=== PATIENT | female | born 1975 | race Caucasian/White ===

== ENCOUNTER 2017-01-02 12:27 | Emergency (ER) | payer MEDICAID, MEDICARE ==
[2017-01-02 12:38] VITALS: BP 134/80
--- NOTE | 2017-01-02 12:51 | EDM.PDOC ---
ED HPI GENERAL MEDICAL PROBLEM - General Chief Complaint: Respiratory Problem Stated Complaint: Cough, fever Time Seen by Provider: 01/02/17 12:35 Source of Information: Reports: Patient, RN Notes Reviewed History Limitations: Reports: No Limitations - History of Present Illness INITIAL COMMENTS - FREE TEXT/NARRATIVE: 41 year old female presents to the ED with complaints of 2-3 week history of cough, sinus congestion and fever. She was seen in the walk-in clinic at [facility] two days ago and was started on Doxycycline. She reports that her fever has subsided but that her cough is getting worse. She has an albuterol inhaler and is using it frequently. She has a history of asthma and smokes 1 ppd. Her cough is harsh and non-productive. She denies chest pain. No history of heart problems. She is on no other medications besides doxycycline. She says she is unable to sleep because her cough is keeping her awake. 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 (see below) Other Treatments SENIOR QUALITY ASSURANCE ANALYST: ibbuprofen, inhaler, took nyquil last night Tooth/Teeth Pain Score (Numeric/FACES): 8 Generalized Pain Score (Numeric/FACES): 7 - Related Data Allergies Allergy/AdvReac Type Severity Reaction Status Date / Time acetaminophen Allergy Anxiety Verified 01/02/17 12:34 [From Lorcet (hydrocodone)] fexofenadine HCl Allergy Anxiety Verified 01/02/17 12:34 [From Indira-D] hydrocodone bitartrate Allergy Anxiety Verified 01/02/17 12:34 [From Lorcet (hydrocodone)] morphine Allergy Anxiety Verified 01/02/17 12:34 oxycodone Allergy Anxiety Verified 01/02/17 12:34 prochlorperazine edisylate Allergy Anxiety Verified 01/02/17 12:34 [From Compazine] prochlorperazine maleate Allergy Anxiety Verified 01/02/17 12:34 [From Compazine] propoxyphene napsylate Allergy Anxiety Verified 01/02/17 12:34 [From Darvocet-N] pseudoephedrine HCl Allergy Anxiety Verified 01/02/17 12:34 [From Indira-D] Sulfa (Sulfonamide Allergy Rash Verified 01/02/17 12:34 Antibiotics) Home Meds: Home Meds Albuterol Sulfate [Proair Hfa] 8.5 gm IH Q4H PRN 01/22/15 [History] Amitriptyline [Elavil] 20 mg PO BEDTIME 01/22/15 [History] Gabapentin [Neurontin] 800 mg PO TID 01/22/15 [History] Ibuprofen 800 mg PO TID 01/22/15 [History] busPIRone [Buspar] 10 mg PO TID 01/22/15 [History] rOPINIRole [Requip] 0.5 mg PO BEDTIME 01/22/15 [History] tiZANidine [Zanaflex] 4 mg PO TID 01/22/15 [History] tiZANidine [Zanaflex] 8 mg PO BEDTIME 01/22/15 [History] Acetaminophen with Codeine [Acetaminop-Codeine 120-12 mg/5] 10 ml PO Q6H PRN # 120 ml 01/02/17 [Rx] Albuterol [Proventil HFA] 2 puff INH QID PRN #1 inhaler 01/02/17 [Rx] predniSONE [Prednisone] 20 mg PO DAILY #5 tablet 01/02/17 [Rx] Past Medical History Other Musculoskeletal History: DEGENERATIVE BONE DISORDER - Past Surgical History GI Surgical History: Reports: Appendectomy, Cholecystectomy Female Surgical History: Reports: LEEP, Tubal Ligation Social & Family History - Tobacco Use Smoking Status *Q: Current Every Day Smoker Years of Tobacco use: 30 Packs/Tins Daily: 1 Used Tobacco, but Quit: No - Recreational Drug Use Recreational Drug Use: No ED ROS GENERAL - Review of Systems Review Of Systems: See Below Constitutional: Reports: Fever, Chills, Diaphoresis HEENT: Reports: Sinus Problem. Denies: Throat Pain Respiratory: Reports: Cough. Denies: Shortness of Breath, Wheezing, Sputum Cardiovascular: Reports: No Symptoms. Denies: Chest Pain GI/Abdominal: Reports: No Symptoms. Denies: Abdominal Pain, Diarrhea, Nausea, Vomiting ED EXAM, GENERAL - Physical Exam Exam: See Below Exam Limited By: No Limitations General Appearance: Alert, WD/WN, No Apparent Distress Throat/Mouth: Normal Inspection, Normal Oropharynx, No Airway Compromise Neck: Normal Inspection, Supple, Non-Tender, Full Range of Motion Respiratory/Chest: No Respiratory Distress, Chest Non-Tender, Crackles (right lower lobe ). No: Wheezing Cardiovascular: Regular Rate, Rhythm, No Murmur Neurological: Alert, Oriented, Normal Cognition Skin Exam: Warm, Dry, Intact Course - Vital Signs Last Recorded V/S: Last Vital Signs Temp 98.6 F 01/02/17 12:34 Pulse 85 01/02/17 12:34 Resp 20 01/02/17 12:34 BP 134/80 01/02/17 12:34 Pulse Ox 98 01/02/17 12:34 - Orders/Labs/Meds Orders: Active Orders 24 hr Category Date Time Status CXR [Chest 2V] [CR] Stat Exams 01/02/17 12:50 Ordered - Re-Assessments/Exams Free Text/Narrative Re-Assessment/Exam: 2 view chest x-ray is normal. Heart size is normal. There are no pulmonary infiltrates or effusions appreciated. No bony abnormality. Patient may have atypical pneumonia not appreciated on x-ray, this would be treated with doxycyline. Will continue her current antibiotic. Will start her on prednisone, tylenol with codeine, and refill her albuterol inhaler. She was instructed to f/u with in 48 hours if not improved. Departure - Departure Time of Disposition: 13:13 Disposition: Home, Self-Care 01 Condition: Good Clinical Impression: Cough, History of asthma, Smoker - Discharge Information Prescriptions: Acetaminophen with Codeine [Acetaminop-Codeine 120-12 mg/5] 10 ml PO Q6H PRN # 120 ml PRN Reason: Cough Albuterol [Proventil HFA] 2 puff INH QID PRN #1 inhaler PRN Reason: Cough predniSONE [Prednisone] 20 mg PO DAILY #5 tablet Instructions: Cough, Adult, [id number] Referrals: PCP,None [Primary Care Provider] - Forms: ED Department Discharge, ED Return to Work/School Form Additional Instructions: Continue the doxycycline as prescribed Albuterol inhaler every 4 hours as needed Prednisone 20mg daily for 5 days, start today Tylenol with Codeine 10ml at bedtime. May use every 6 hours as needed throughout the day - My Orders Last 24 Hours: My Active Orders 01/02/17 12:50 CXR [Chest 2V] [CR] Stat - Assessment/Plan Last 24 Hours: My Active Orders 01/02/17 12:50 CXR [Chest 2V] [CR] Stat
--- NOTE | 2017-01-02 14:48 | CR ---
Chest: Two views of the chest were obtained. Comparison: No previous chest x-ray. Equivocal nodule overlying the right anterior rib near the costochondral junction. This may represent costochondral calcification but further evaluation will be recommended to exclude nodule. Lungs otherwise are clear. Bony structures are unremarkable. Incidental surgical clips are noted from prior cholecystectomy. Impression: 1. Equivocal right upper lobe nodule. Noncontrast chest CT recommended to hopefully exclude this possibility. 2. Two-view chest x-ray is otherwise unremarkable. Diagnostic code #9
== END 2017-01-02 13:35 | disposition home or self-care (01) ==
LOC: JD.ED 12:27
DX: R05 Cough (principal); F17.210 Nicotine dependence, cigarettes, uncomplicated; J45.909 Unspecified asthma, uncomplicated; Z88.5 Allergy status to narcotic agent; Z88.2 Allergy status to sulfonamides; Z79.899 Other long term (current) drug therapy; Z90.49 Acquired absence of other specified parts of digestive tract
CPT/HCPCS: 71020; 71020-26; 99283

== ENCOUNTER 2017-03-25 17:25 | Emergency (ER) | payer SELFPAY ==
[2017-03-25 17:56] VITALS: BP 123/79
--- NOTE | 2017-03-25 18:57 | EDM.PDOC ---
ED HPI GENERAL MEDICAL PROBLEM - General Chief Complaint: Back Pain or Injury Stated Complaint: PAIN IN SHOULDERS, NECK AND HEAD Time Seen by Provider: 03/25/17 18:57 Source of Information: Reports: Patient History Limitations: Reports: No Limitations - History of Present Illness INITIAL COMMENTS - FREE TEXT/NARRATIVE: Patient is a 41-year-old female with a history of fibromyalgia and degenerative disc disease who presents to the ED complaining of upper back and lateral neck discomfort. Patient states she has chronic neck and upper back discomfort. As of recent ibuprofen and topical pain creams have not relieved this discomfort. She's tried gentle massage with heat and ice with no relief. There has been no known precipitating factors contributing to this discomfort. States she has had episodes as such that are commonly relieved with Toradol and Phenergan while seen in the ED. In addition she has a headache considered to be generalized 2nd to neck discomfort. NO temporal discomfort. AGOSTO was gradual onset. Denies any fever, vision changes, nausea/vomiting, chest pain, shortness of breath, N/T, or any additional complaints. 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, NSAIDS Upper Back Pain Score (Numeric/FACES): 8 - Related Data Allergies Allergy/AdvReac Type Severity Reaction Status Date / Time acetaminophen Allergy Anxiety Verified 01/02/17 12:34 [From Lorcet (hydrocodone)] amoxicillin Allergy Hives Verified 03/25/17 17:57 fexofenadine HCl Allergy Anxiety Verified 01/02/17 12:34 [From Indira-D] hydrocodone bitartrate Allergy Anxiety Verified 01/02/17 12:34 [From Lorcet (hydrocodone)] morphine Allergy Anxiety Verified 01/02/17 12:34 oxycodone Allergy Anxiety Verified 01/02/17 12:34 prochlorperazine edisylate Allergy Anxiety Verified 01/02/17 12:34 [From Compazine] prochlorperazine maleate Allergy Anxiety Verified 01/02/17 12:34 [From Compazine] propoxyphene napsylate Allergy Anxiety Verified 01/02/17 12:34 [From Darvocet-N] pseudoephedrine HCl Allergy Anxiety Verified 01/02/17 12:34 [From Indira-D] Sulfa (Sulfonamide Allergy Rash Verified 01/02/17 12:34 Antibiotics) Home Meds: Home Meds Albuterol Sulfate [Proair Hfa] 8.5 gm IH Q4H PRN 01/22/15 [History] Albuterol [Proventil HFA] 2 puff INH QID PRN #1 inhaler 01/02/17 [Rx] Past Medical History Respiratory History: Reports: Asthma Other Respiratory History: "athletic asthma" Gastrointestinal History: Reports: Irritable Bowel Syndrome Genitourinary History: Reports: None Musculoskeletal History: Reports: Arthritis, Fibromyalgia, Other (See Below) Other Musculoskeletal History: DEGENERATIVE BONE DISORDER bursitis Neurological History: Reports: Concussion Psychiatric History: Reports: ADD, Addiction, Anxiety, Depression, Learning Disability, PTSD Oncologic (Cancer) History: Reports: Cervix - Past Surgical History GI Surgical History: Reports: Appendectomy, Cholecystectomy Female Surgical History: Reports: D&C, LEEP, Tubal Ligation Musculoskeletal Surgical History: Reports: Arthroscopic Knee, Other (See Below) Social & Family History - Family History Family Medical History: Noncontributory - Tobacco Use Smoking Status *Q: Current Every Day Smoker Years of Tobacco use: 29 Packs/Tins Daily: 1.5 Used Tobacco, but Quit: No - Caffeine Use Caffeine Use: Reports: Coffee, Energy Drinks, Soda, Tea - Recreational Drug Use Recreational Drug Use: No ED ROS GENERAL - Review of Systems Review Of Systems: ROS reveals no pertinent complaints other than HPI. ED EXAM, UPPER BACK/NECK PAIN - Physical Exam Exam: See Below Exam Limited By: No Limitations General Appearance: Alert, WD/WN, Mild Distress Ears Exam: Hearing Grossly Normal Nose Exam: Normal Inspection Throat/Mouth Exam: Normal Inspection, Normal Oropharynx, Normal Voice, No Airway Compromise Head Exam: Atraumatic, Normocephalic Neck Exam: Full Range of Motion, Normal Alignment, Normal Inspection, Painful Range of Motion (mild), Paraspinous Muscle Tender, Tender Lateral. No: Limited Range of Motion, Spinous Processes Tender, Tender Midline Nexus Criteria: No: Evidence of Intoxication, Altered Level of Consciousness, Focal Neurological Deficit, Painful Distraction Injuries Cardiovascular/Respiratory: Regular Rate, Rhythm, No M/R/G, Normal Peripheral Pulses Back Exam: Normal Inspection, Full Range of Motion, Paraspinal Tenderness. 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 nml As Tested, No Motor/Sensory Deficits, Alert, Normal Mood/Affect, Oriented x 3 Psychiatric: Normal Affect, Normal Mood Skin Exam: Normal Color, Warm/Dry Course - Vital Signs Last Recorded V/S: Last Vital Signs Temp 97 F 03/25/17 17:52 Pulse 78 03/25/17 17:52 Resp 18 03/25/17 17:52 BP 123/79 03/25/17 17:52 Pulse Ox 99 03/25/17 17:52 - Orders/Labs/Meds Meds: Medications Discontinued Medications Generic Name Dose Route Start Last Admin Trade Name Cheryl PRN Reason Stop Dose Admin Ketorolac Tromethamine 60 mg 03/25/17 19:38 03/25/17 19:44 Toradol IM 03/25/17 19:39 60 mg ONETIME ONE Administration Promethazine HCl 25 mg 03/25/17 19:38 03/25/17 19:44 Phenergan IM 03/25/17 19:39 25 mg ONETIME ONE Administration - Re-Assessments/Exams Free Text/Narrative Re-Assessment/Exam: Patient has hx of fibromyalgia and degenerative joint disease. Current complaint similar to previous episodes. She normally gets Toradol and Phenergan while in the ED for similar complaints. Will order Toradol 60 mg IM and Phenergan 25 mg IM. We'll discharge patient home with instructions as documented. Departure - Departure Time of Disposition: 19:42 Disposition: Home, Self-Care 01 Condition: Good Clinical Impression: Chronic neck and back pain - Discharge Information Instructions: Back Pain, Adult, [id number], Pain Medicine Instructions, Easy- to-Read, Chronic Back Pain Referrals: PCP,None [Ordering Only Provider] - Forms: ED Department Discharge, ED Return to Work/School Form Additional Instructions: You were given Phenergan and Toradol while in the ED. Suggest going home apply warm compresses to affected area with gentle massage. Can utilize topical Biofreeze for discomfort. Follow-up with your PCP in next week for reevaluation and continued pain therapy. Refrain from any activities that cause worsening pain.
[2017-03-25] MEDS ORDERED: Promethazine 25 MG/ML SDV IM ONE (19:38)
[2017-03-25] MEDS ORDERED: Ketorolac 60 MG/2 ML SDV IM ONE (19:38)
== END 2017-03-25 19:56 | disposition home or self-care (01) ==
LOC: JD.ED 17:25
DX: G89.29 Other chronic pain (principal); M54.6 Pain in thoracic spine; M54.2 Cervicalgia; J45.909 Unspecified asthma, uncomplicated; F17.210 Nicotine dependence, cigarettes, uncomplicated; Z88.2 Allergy status to sulfonamides; Z88.8 Allergy status to other drugs, medicaments and biological substances; Z88.5 Allergy status to narcotic agent; Z88.6 Allergy status to analgesic agent; Z88.1 Allergy status to other antibiotic agents
CPT/HCPCS: 96372; 99283; J1885; J2550; 99282

== ENCOUNTER 2017-06-29 21:32 | Emergency (ER) | payer MEDICAID ==
[2017-06-29 22:13] VITALS: BP 107/69
[2017-06-29] MEDS ORDERED: Promethazine 25 MG/ML SDV IM ONE (22:25)
[2017-06-29] MEDS ORDERED: HYDROmorphone 1 MG/ML Syringe IM ONE (22:25)
--- NOTE | 2017-06-29 22:31 | EDM.PDOC ---
ED HPI GENERAL MEDICAL PROBLEM - General Chief Complaint: ENT Problem Stated Complaint: TOOTH PAIN Time Seen by Provider: 06/29/17 22:15 Source of Information: Reports: Patient History Limitations: Reports: No Limitations - History of Present Illness INITIAL COMMENTS - FREE TEXT/NARRATIVE: 41-year-old female presents to the ED with diffuse dental pain. 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 She was seen in the clinic last week and started on clindamycin 300 mg 4 times daily of which she is still on. This was started because of infection in the right upper canine tooth. Currently now expressing pain in the left canine tooth distribution rating up and towards her left maxillary sinus and along the left side of her nose. She's been using Motrin in addition to diclofenac for pain relief. Pain is now constant throbbing and radiating up into her left face. 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: Other (see below) Tooth/Teeth Pain Score (Numeric/FACES): 9 - Related Data Allergies Allergy/AdvReac Type Severity Reaction Status Date / Time acetaminophen Allergy Anxiety Verified 01/02/17 12:34 [From Lorcet (hydrocodone)] amoxicillin Allergy Hives Verified 03/25/17 17:57 fexofenadine HCl Allergy Anxiety Verified 01/02/17 12:34 [From Indira-D] hydrocodone bitartrate Allergy Anxiety Verified 01/02/17 12:34 [From Lorcet (hydrocodone)] morphine Allergy Anxiety Verified 01/02/17 12:34 oxycodone Allergy Anxiety Verified 01/02/17 12:34 prochlorperazine edisylate Allergy Anxiety Verified 01/02/17 12:34 [From Compazine] prochlorperazine maleate Allergy Anxiety Verified 01/02/17 12:34 [From Compazine] propoxyphene napsylate Allergy Anxiety Verified 01/02/17 12:34 [From Darvocet-N] pseudoephedrine HCl Allergy Anxiety Verified 01/02/17 12:34 [From Indira-D] Sulfa (Sulfonamide Allergy Rash Verified 01/02/17 12:34 Antibiotics) Home Meds: Home Meds Albuterol Sulfate [Proair Hfa] 8.5 gm IH Q4H PRN 01/22/15 [History] Albuterol [Proventil HFA] 2 puff INH QID PRN #1 inhaler 01/02/17 [Rx] Ciprofloxacin HCl [Cipro] 500 mg PO BID #14 tablet 06/29/17 [Rx] Clindamycin HCl 300 mg PO QID 06/29/17 [History] Diclofenac Sodium [Voltaren] 50 mg PO BID 06/29/17 [History] Gabapentin [Neurontin] 1,200 mg PO TID 06/29/17 [History] HYDROmorphone [Dilaudid] 2 mg PO Q6H PRN #10 tab 06/29/17 [Rx] hydrOXYzine HCl [hydrOXYzine] 25 mg PO BID 06/29/17 [History] hydrOXYzine HCl [hydrOXYzine] 150 mg PO BEDTIME 06/29/17 [History] lamoTRIgine [LaMICtal] 100 mg PO BEDTIME 06/29/17 [History] tiZANidine [Zanaflex] 4 mg PO ASDIRECTED 06/29/17 [History] Past Medical History Respiratory History: Reports: Asthma Other Respiratory History: "athletic asthma" Gastrointestinal History: Reports: Irritable Bowel Syndrome Genitourinary History: Reports: None Musculoskeletal History: Reports: Arthritis, Fibromyalgia, Other (See Below) Other Musculoskeletal History: DEGENERATIVE BONE DISORDER bursitis Neurological History: Reports: Concussion Psychiatric History: Reports: ADD, Addiction, Anxiety, Depression, Learning Disability, PTSD Oncologic (Cancer) History: Reports: Cervix - Past Surgical History GI Surgical History: Reports: Appendectomy, Cholecystectomy Female Surgical History: Reports: D&C, LEEP, Tubal Ligation Musculoskeletal Surgical History: Reports: Arthroscopic Knee, Other (See Below) Social & Family History - Family History Family Medical History: Noncontributory - Tobacco Use Smoking Status *Q: Current Every Day Smoker Years of Tobacco use: 29 Packs/Tins Daily: 1.5 Used Tobacco, but Quit: No - Caffeine Use Caffeine Use: Reports: Coffee, Energy Drinks, Soda, Tea - Recreational Drug Use Recreational Drug Use: No - Living Situation & Occupation Occupation: Unemployed ED ROS ENT - Review of Systems Review Of Systems: See Below Constitutional: Reports: Decreased Appetite. Denies: Fever, Chills, Malaise, Weakness, Fatigue, Weight Loss HEENT: Reports: Dental Pain (See history of present illness) Respiratory: Reports: No Symptoms, Cough Cardiovascular: Reports: No Symptoms (Smoker's cough.). Denies: Chest Pain, Blood Pressure Problem Endocrine: Reports: Fatigue GI/Abdominal: Reports: Nausea : Reports: No Symptoms Musculoskeletal: Reports: Neck Pain, Shoulder Pain, Back Pain Skin: Reports: No Symptoms Neurological: Reports: No Symptoms, Change in Speech Psychiatric: Reports: No Symptoms Hematologic/Lymphatic: Reports: No Symptoms ED EXAM, ENT - Physical Exam Exam: See Below Exam Limited By: No Limitations General Appearance: Alert, WD/WN, Mild Distress Eye Exam: Bilateral Eye: Normal Inspection Ears: Normal TMs Mouth/Throat: Other (Dental caries. The left upper canine tooth is broken off with the gingiva margin which is swollen without any obvious purulent discharge. Similarly the right upper canine tooth is broken off at the gingiva margin. Numerous molar teeth particularly upper have fractured and are severely decayed. Similarly lower molars as well. She is going to need multiple extractions of her upper teeth and one of her lower molars to provide relief of dental pain chronically.) Head: Atraumatic, Normocephalic Neck: Normal Inspection, Supple, Non-Tender, Full Range of Motion, Lymphadenopathy (L) (Mild adenopathy submandibular.). No: Lymphadenopathy (R) Respiratory/Chest: No Respiratory Distress, Lungs Clear, Normal Breath Sounds, Respiratory Distress (Mild tachypnea but she is anxious.) Course - Vital Signs Last Recorded V/S: Last Vital Signs Temp 36.8 C 06/29/17 22:12 Pulse 70 06/29/17 22:12 Resp 20 06/29/17 22:12 BP 107/69 06/29/17 22:12 Pulse Ox 99 06/29/17 22:12 - Orders/Labs/Meds Meds: Medications Discontinued Medications Generic Name Dose Route Start Last Admin Trade Name Freq PRN Reason Stop Dose Admin Hydromorphone HCl 1 mg 06/29/17 22:25 Dilaudid IM 06/29/17 22:26 ONETIME ONE Hydromorphone HCl 1 mg 06/29/17 22:37 06/29/17 22:49 Dilaudid IM 06/29/17 22:38 1 mg ONETIME ONE Administration Promethazine HCl 25 mg 06/29/17 22:25 06/29/17 22:48 Phenergan IM 06/29/17 22:26 25 mg ONETIME ONE Administration - Radiology Interpretation Free Text/Narrative:: 41-year-old female presents to the ED primarily for pain management of severe dental pain. She is already on clindamycin 300 mg 4 times daily but in spite of being on medication for 4 days she's developed increased pain and swelling of her left upper canine tooth. There is a remote possibility of antibiotic resistance versus noncompliance. At any rate the upper left canine tooth is broken off even with the gingiva margin with surrounding gingival swelling and erythema. Pain is radiating up into her maxillary sinus area. I've Dilaudid 2 mg tablets one every 4-6 hours as needed for dental pain 12 tablets. She is to see the dentist next week and have the teeth extracted. Unfortunately it may take an oral surgeon to remove most of these teeth at one sitting. We do not have Dilaudid tablets in the ED. Therefore she was given Dilaudid 1 mg IM with Phenergan 25 mg IM for acute pain relief overnight. Departure - Departure Time of Disposition: 22:45 Disposition: Home, Self-Care 01 Condition: Fair Clinical Impression: Infected dental caries, Pain, dental - Discharge Information Prescriptions: Ciprofloxacin HCl [Cipro] 500 mg PO BID #14 tablet HYDROmorphone [Dilaudid] 2 mg PO Q6H PRN #10 tab PRN Reason: Dental pain Referrals: PCP,Unknown [Ordering Only Provider] - Forms: ED Department Discharge Additional Instructions: Evaluation emergency room tonight in regards to dental pain left upper canine which is broken off at the gingiva margin. Already on clindamycin 300 mg 4 times daily for dental infection involving the opposite upper canine tooth. Plan is to continue with the clindamycin with the addition of a new antibiotic Cipro 500 mg twice daily for the next week as well. Dental pain is to be controlled with diclofenac as you're already taking and use of Dilaudid tabs 2 mg every 6 hours as necessary for further pain relief. Follow-up with dentist when able as the tooth will have to be extracted otherwise infection and pain are likely to recur soon as the antibiotics are finished.
[2017-06-29] MEDS ORDERED: HYDROmorphone 0.5 MG/0.5 ML SYRINGE IM ONE (22:37)
== END 2017-06-29 22:54 | disposition home or self-care (01) ==
LOC: JD.ED 21:32
DX: K02.9 Dental caries, unspecified (principal); K04.7 Periapical abscess without sinus; K03.81 Cracked tooth; F17.210 Nicotine dependence, cigarettes, uncomplicated; J45.909 Unspecified asthma, uncomplicated; Z88.1 Allergy status to other antibiotic agents; Z88.5 Allergy status to narcotic agent; Z88.6 Allergy status to analgesic agent; Z88.2 Allergy status to sulfonamides; Z88.8 Allergy status to other drugs, medicaments and biological substances
CPT/HCPCS: 96372; 99283; J1170; J2550

== ENCOUNTER 2017-11-05 17:51 | Emergency (ER) | payer OTHER, MEDICAID ==
[2017-11-05 18:02] VITALS: BP 134/81
[2017-11-05] MEDS ORDERED: Ketorolac 60 MG/2 ML SDV IM ONE (18:24)
[2017-11-05] MEDS ORDERED: Promethazine 25 MG/ML SDV IM ONE (18:25)
--- NOTE | 2017-11-05 18:32 | EDM.PDOC ---
ED HPI GENERAL MEDICAL PROBLEM - General Chief Complaint: General Stated Complaint: IN ALOT OF PAIN Time Seen by Provider: 11/05/17 18:08 Source of Information: Reports: Patient History Limitations: Reports: No Limitations - History of Present Illness INITIAL COMMENTS - FREE TEXT/NARRATIVE: Patient is a 42-year-old female presents ED complaining of bilateral upper back , neck, head discomfort. She states she has a history of fibromyalgia and she's recently had a flare up. She has taken her gabapentin, denies obtained, and also ibuprofen with no significant improvements. States she's been under more stress recently due to legal issues for her boyfriend and son. In the past she receives Toradol and Phenergan IM. She does not request any narcotics. She denies any fever, stiff neck, recent trauma/activity precipitating pain, rash, or other concerning symptoms. The symptoms currently experiencing are similar to previous flareups. Generalized Pain Score (Numeric/FACES): 9 - Related Data Allergies Allergy/AdvReac Type Severity Reaction Status Date / Time amoxicillin Allergy Hives Verified 11/05/17 17:57 Sulfa (Sulfonamide Allergy Rash Verified 11/05/17 17:57 Antibiotics) acetaminophen AdvReac Anxiety Verified 11/05/17 17:57 [From Lorcet (hydrocodone)] fexofenadine HCl AdvReac Anxiety Verified 11/05/17 17:57 [From Indira-D] hydrocodone bitartrate AdvReac Anxiety Verified 11/05/17 17:57 [From Lorcet (hydrocodone)] morphine AdvReac Anxiety Verified 11/05/17 17:57 oxycodone AdvReac Anxiety Verified 11/05/17 17:57 prochlorperazine edisylate AdvReac Anxiety Verified 11/05/17 17:57 [From Compazine] prochlorperazine maleate AdvReac Anxiety Verified 11/05/17 17:57 [From Compazine] propoxyphene napsylate AdvReac Anxiety Verified 11/05/17 17:57 [From Darvocet-N] pseudoephedrine HCl AdvReac Anxiety Verified 11/05/17 17:57 [From Indira-D] Home Meds: Home Meds Albuterol Sulfate [Proair Hfa] 8.5 gm IH Q4H PRN 01/22/15 [History] Albuterol [Proventil HFA] 2 puff INH QID PRN #1 inhaler 01/02/17 [Rx] Gabapentin [Neurontin] 1,200 mg PO TID 06/29/17 [History] hydrOXYzine HCl [hydrOXYzine] 25 mg PO BID 06/29/17 [History] hydrOXYzine HCl [hydrOXYzine] 150 mg PO BEDTIME 06/29/17 [History] tiZANidine [Zanaflex] 4 mg PO ASDIRECTED 06/29/17 [History] Prazosin [Minpress] 4 mg PO BEDTIME 11/05/17 [History] Past Medical History HEENT History: Reports: Other (See Below) Other HEENT History: dental carries Respiratory History: Reports: Asthma Other Respiratory History: "athletic asthma" Gastrointestinal History: Reports: Irritable Bowel Syndrome Genitourinary History: Reports: None Musculoskeletal History: Reports: Arthritis, Fibromyalgia, Other (See Below) Other Musculoskeletal History: DEGENERATIVE BONE DISORDER bursitis Neurological History: Reports: Concussion Psychiatric History: Reports: ADD, Addiction, Anxiety, Depression, Learning Disability, PTSD Oncologic (Cancer) History: Reports: Cervix - Past Surgical History GI Surgical History: Reports: Appendectomy, Cholecystectomy Female Surgical History: Reports: D&C, LEEP, Tubal Ligation Musculoskeletal Surgical History: Reports: Arthroscopic Knee, Other (See Below) Social & Family History - Family History Family Medical History: Noncontributory - Tobacco Use Smoking Status *Q: Current Every Day Smoker Years of Tobacco use: 30 Packs/Tins Daily: 1 - Caffeine Use Caffeine Use: Reports: Coffee, Energy Drinks, Soda - Recreational Drug Use Recreational Drug Use: Yes Drug Use in Last 12 Months: No Recreational Drug Type: Reports: Marijuana/Hashish, Methamphetamine - Living Situation & Occupation Occupation: Unemployed ED ROS GENERAL - Review of Systems Review Of Systems: ROS reveals no pertinent complaints other than HPI. ED EXAM, GENERAL - Physical Exam Exam: See Below Exam Limited By: No Limitations General Appearance: Alert, WD/WN, No Apparent Distress Eye Exam: Bilateral Eye: Normal Inspection, PERRL Ears: Hearing Grossly Normal Nose: Normal Inspection Throat/Mouth: Normal Inspection, Normal Voice, No Airway Compromise Neck: Normal Inspection, Supple, Full Range of Motion, Tender Lateral Respiratory/Chest: No Respiratory Distress, Lungs Clear, Normal Breath Sounds, No Accessory Muscle Use, Chest Non-Tender Cardiovascular: Normal Peripheral Pulses, Regular Rate, Rhythm, No Murmur Peripheral Pulses: 4+: Radial (L) GI/Abdominal: Normal Bowel Sounds, Soft, Non-Tender, No Organomegaly, No Distention Back Exam: Normal Inspection, Other (Tenderness noted to the upper back along the trapezius muscles bilateral.). No: CVA Tenderness (L), CVA Tenderness (R), Decreased Range of Motion, Muscle Spasm, Paraspinal Tenderness, Vertebral Tenderness Neurological: Alert, Oriented, CN II-XII Intact, Normal Cognition, No Motor/ Sensory Deficits Psychiatric: Normal Affect, Normal Mood Skin Exam: Warm, Dry, Intact, Normal Color, No Rash Course - Vital Signs Last Recorded V/S: Last Vital Signs Temp 98.4 F 11/05/17 17:59 Pulse 73 11/05/17 17:59 Resp 16 11/05/17 17:59 BP 134/81 11/05/17 17:59 Pulse Ox 97 11/05/17 17:59 - Orders/Labs/Meds Meds: Medications Discontinued Medications Generic Name Dose Route Start Last Admin Trade Name Cheryl PRN Reason Stop Dose Admin Ketorolac Tromethamine 60 mg 11/05/17 18:24 Toradol IM 11/05/17 18:25 ONETIME ONE Promethazine HCl 25 mg 11/05/17 18:25 Phenergan IM 11/05/17 18:26 ONETIME ONE - Re-Assessments/Exams Free Text/Narrative Re-Assessment/Exam: On examination she has some mild tenderness noted to the upper back, lateral neck, on palpation. No decreased range of motion noted. No swelling, ecchymosis , bony abdomen eyes, or rash present. Neurologically she is intact. Findings are consistent with previous episodes with fiber myalgia flare up. She is requesting Toradol and Phenergan IM. I ordered Toradol 60 mg IM and Phenergan 25 mg IM. Patient last took ibuprofen approximately 5 hours ago. Discharge instructions as documented. Departure - Departure Time of Disposition: 18:29 Disposition: Home, Self-Care 01 Condition: Good Clinical Impression: Chronic pain syndrome, Fibromyalgia muscle pain - Discharge Information Instructions: Myofascial Pain Syndrome and Fibromyalgia Referrals: Damian Calderon [Primary Care Provider] - Additional Instructions: Suggests finding a dark room to fall sleep this evening with no distractions. No driving since receiving a sedative medication. Continue using all the homeopathic Methods for treating fibromyalgia pain and also continue taking all your home medications as prescribed. Follow-up with your primary care provider tomorrow or the next day for reevaluation. Return to the ED if you develop any new or worsening symptoms.
== END 2017-11-05 18:40 | disposition home or self-care (01) ==
LOC: JD.ED 17:51
DX: G89.4 Chronic pain syndrome (principal); M79.7 Fibromyalgia; F17.210 Nicotine dependence, cigarettes, uncomplicated; J45.909 Unspecified asthma, uncomplicated; F41.9 Anxiety disorder, unspecified; F32.9 Major depressive disorder, single episode, unspecified; Z79.899 Other long term (current) drug therapy; Z88.8 Allergy status to other drugs, medicaments and biological substances; Z88.2 Allergy status to sulfonamides; Z88.5 Allergy status to narcotic agent; Z88.1 Allergy status to other antibiotic agents
CPT/HCPCS: 96372; 99283; J1885; J2550

== ENCOUNTER 2017-12-13 13:08 | Emergency (ER) | payer MEDICAID, MEDICARE ==
[2017-12-13 13:18] VITALS: BP 122/73
[2017-12-13] MEDS ORDERED: Ketorolac 30 MG/ML SDV IM ONE (13:52)
--- NOTE | 2017-12-13 14:04 | EDM.PDOC ---
ED HPI GENERAL MEDICAL PROBLEM - General Chief Complaint: Neck Problem Stated Complaint: NECK AND SHOULDER PAIN Time Seen by Provider: 12/13/17 13:33 Source of Information: Reports: Patient History Limitations: Reports: No Limitations - History of Present Illness INITIAL COMMENTS - FREE TEXT/NARRATIVE: Patient is a 42-year-old female who presents ED complaining of left-sided lateral neck discomfort that radiates into the upper left arm. Patient underwent fusion of C5 and C6 by Dr. Zuleta 8 days ago. There were no complications. States the healing process has been uneventful up until today. Patient states she was cleaning her kitchen when she experience sudden onset of pain to the left lateral neck that radiated into her arm. There is no motor deficits. No sensory deficits. No weakness noted. She was instructed not to perform any also old activities among other things for 6 weeks by the neurosurgeon. She did take Dilaudid 2 mg at 9:30 this morning along with Valium 10 mg by mouth. She had some relief with these medications. She is not wanting a narcotic meds. She is concerned she may have messed up the surgery. Incision site to the anterior aspect the neck is well-healed with no noticeable swelling. No swelling noted posteriorly that is abnormal at this time. Patient denies any other complaints. Neck Pain Score (Numeric/FACES): 8 - Related Data Allergies Allergy/AdvReac Type Severity Reaction Status Date / Time amoxicillin Allergy Hives Verified 11/05/17 17:57 Sulfa (Sulfonamide Allergy Rash Verified 11/05/17 17:57 Antibiotics) acetaminophen AdvReac Anxiety Verified 11/05/17 17:57 [From Lorcet (hydrocodone)] fexofenadine HCl AdvReac Anxiety Verified 11/05/17 17:57 [From Indira-D] hydrocodone bitartrate AdvReac Anxiety Verified 11/05/17 17:57 [From Lorcet (hydrocodone)] morphine AdvReac Anxiety Verified 11/05/17 17:57 oxycodone AdvReac Anxiety Verified 11/05/17 17:57 prochlorperazine edisylate AdvReac Anxiety Verified 11/05/17 17:57 [From Compazine] prochlorperazine maleate AdvReac Anxiety Verified 11/05/17 17:57 [From Compazine] propoxyphene napsylate AdvReac Anxiety Verified 11/05/17 17:57 [From Darvocet-N] pseudoephedrine HCl AdvReac Anxiety Verified 11/05/17 17:57 [From Indira-D] Home Meds: Home Meds Albuterol Sulfate [Proair Hfa] 8.5 gm IH Q4H PRN 01/22/15 [History] Albuterol [Proventil HFA] 2 puff INH QID PRN #1 inhaler 01/02/17 [Rx] Gabapentin [Neurontin] 1,200 mg PO TID 06/29/17 [History] hydrOXYzine HCl [hydrOXYzine] 25 mg PO BID 06/29/17 [History] hydrOXYzine HCl [hydrOXYzine] 150 mg PO BEDTIME 06/29/17 [History] tiZANidine [Zanaflex] 4 mg PO ASDIRECTED 06/29/17 [History] Prazosin [Minpress] 4 mg PO BEDTIME 11/05/17 [History] Diazepam [Valium] 10 mg PO ASDIRECTED PRN 12/13/17 [History] HYDROmorphone [Dilaudid] 1 - 2 tab PO Q6H PRN 12/13/17 [History] Vortioxetine Hydrobromide [Trintellix] 10 mg PO DAILY 12/13/17 [History] Past Medical History HEENT History: Reports: Other (See Below) Other HEENT History: dental carries Respiratory History: Reports: Asthma Other Respiratory History: "athletic asthma" Gastrointestinal History: Reports: Irritable Bowel Syndrome Genitourinary History: Reports: None Musculoskeletal History: Reports: Arthritis, Fibromyalgia, Other (See Below) Other Musculoskeletal History: DEGENERATIVE BONE DISORDER bursitis Neurological History: Reports: Concussion Psychiatric History: Reports: ADD, Addiction, Anxiety, Depression, Learning Disability, PTSD Oncologic (Cancer) History: Reports: Cervix - Past Surgical History GI Surgical History: Reports: Appendectomy, Cholecystectomy Female Surgical History: Reports: D&C, LEEP, Tubal Ligation Musculoskeletal Surgical History: Reports: Arthroscopic Knee, Other (See Below) Other Musculoskeletal Surgeries/Procedures:: neck surgery 2018-fusion [id number] Social & Family History - Family History Family Medical History: Noncontributory - Tobacco Use Smoking Status *Q: Current Every Day Smoker Years of Tobacco use: 32 Packs/Tins Daily: 1 - Caffeine Use Caffeine Use: Reports: Coffee, Energy Drinks, Soda, Tea - Recreational Drug Use Recreational Drug Use: No - Living Situation & Occupation Occupation: Unemployed ED ROS GENERAL - Review of Systems Review Of Systems: See Below Constitutional: Reports: No Symptoms Respiratory: Reports: No Symptoms Cardiovascular: Reports: No Symptoms Musculoskeletal: Reports: Neck Pain, Arm Pain. Denies: Back Pain Skin: Reports: No Symptoms Neurological: Reports: No Symptoms ED EXAM, GENERAL - Physical Exam Exam: See Below Exam Limited By: No Limitations General Appearance: Alert, WD/WN, Mild Distress Eye Exam: Bilateral Eye: Normal Inspection Ears: Hearing Grossly Normal Nose: Normal Inspection Throat/Mouth: Normal Voice, No Airway Compromise Head: Atraumatic, Normocephalic Neck: Tender Lateral (Some mild discomfort noted along the trapezius muscle with palpation.), Other (Small surgical incision to the right anterior of the neck. Surgical incision is well approximated with no concerns for infection. Minimal swelling present. She does have some midline tenderness along the cervical spine persistent from surgery. No new changes noted. Decreased range of motion noted persistent unchanged.) Respiratory/Chest: No Respiratory Distress, Lungs Clear, Normal Breath Sounds, No Accessory Muscle Use Cardiovascular: Normal Peripheral Pulses, Regular Rate, Rhythm, No Murmur Peripheral Pulses: 3+: Radial (L) Back Exam: Normal Inspection, Other (Nontender throughout) Extremities: Normal Inspection, Normal Range of Motion, Non-Tender, No Pedal Edema, Normal Capillary Refill Neurological: Alert, Oriented, CN II-XII Intact, Normal Cognition, No Motor/ Sensory Deficits Psychiatric: Normal Affect, Normal Mood Skin Exam: Warm, Dry, Intact, Normal Color, No Rash Course - Vital Signs Last Recorded V/S: Last Vital Signs Temp 98.5 F 12/13/17 13:17 Pulse 77 12/13/17 13:17 Resp 20 12/13/17 13:17 BP 122/73 12/13/17 13:17 Pulse Ox 96 12/13/17 13:17 - Orders/Labs/Meds Meds: Medications Discontinued Medications Generic Name Dose Route Start Last Admin Trade Name Freq PRN Reason Stop Dose Admin Ketorolac Tromethamine 30 mg 12/13/17 13:52 12/13/17 13:58 Toradol IM 12/13/17 13:53 30 mg ONETIME ONE Administration - Re-Assessments/Exams Free Text/Narrative Re-Assessment/Exam: No narcotics will be provided while in the ED. Patient refuses any narcotics as well. I offered an injection of Toradol low-dose to which the patient has agreed. 30 mg IM ordered. No additional studies testing are required at this point. I believe patient aggravated her neck with the activities performed while cleaning her kitchen. She is not following instructions laid out by neurosurgeon. She will follow up with neurosurgeon this coming week for reevaluation. Departure - Departure Time of Disposition: 14:10 Disposition: Home, Self-Care 01 Condition: Good Clinical Impression: S/P cervical spinal fusion, Neck pain on left side - Discharge Information Referrals: Dinora Griffin MD [Primary Care Provider] - Forms: ED Department Discharge Additional Instructions: Continue to take all home medications as prescribed. Please review the instructions provided by your neurosurgeon. If you should develop any new or worsening symptoms please return back to the ED. Contact your neurosurgeon this coming Friday if symptoms persist to be reevaluated this week.
== END 2017-12-13 14:24 | disposition home or self-care (01) ==
LOC: JD.ED 13:08
DX: M54.2 Cervicalgia (principal); Z98.1 Arthrodesis status; Z88.2 Allergy status to sulfonamides; Z88.8 Allergy status to other drugs, medicaments and biological substances; Z88.0 Allergy status to penicillin; Z88.6 Allergy status to analgesic agent; Z79.899 Other long term (current) drug therapy
CPT/HCPCS: 96372; 99283; J1885

== ENCOUNTER 2018-02-05 09:52 | Emergency (ER) | payer MEDICARE, MEDICAID ==
[2018-02-05 10:31] VITALS: BP 120/74
[2018-02-05] MEDS ORDERED: Ondansetron 4 MG/2 ML SDV IVPUSH ONE (10:37)
[2018-02-05] MEDS ORDERED: Dextrose 5%-Lactated Ringers 1,000 ML IV SCH ×2 (10:45→13:00)
--- NOTE | 2018-02-05 10:46 | EDM.PDOC ---
ED HPI GENERAL MEDICAL PROBLEM - General Chief Complaint: Gastrointestinal Problem Stated Complaint: ABD PAIN AND DIARRHEA Time Seen by Provider: 02/05/18 10:29 Source of Information: Reports: Patient, Family (spouse) History Limitations: Reports: No Limitations - History of Present Illness INITIAL COMMENTS - FREE TEXT/NARRATIVE: Today we have a 42 yo F who presents to the ED for evaluation and treatment of her diarrhea and abdominal pain. She states that she was seen at the [facility] last night for the same symptoms, and they did some labs. However she is not feeling better, but is feeling worse than she was last night , she characterizes being more lightheaded/dizzy and sweaty. She states that she has been having diarrhea for around 3 days, and abdominal pain for around 1 week. She states that the stool is bright yellow in color, watery and slimy in nature. She states that the pain is located in her lower abdomen. She says that it is a crampy pain and is also sharp at times. She rates this as an 8/10 on a 0 -10 pain scale. This pain does not radiate anywhere else, and that nothing makes it better, but doing any type of activity makes it worse. She is having around 8-9 stools per day. She also states that she has been on 3 different antibiotics within the last couple months. We discussed found out that the last medication was cephalexin 500 mg twice a day for 10 days prescribed January 02. 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) (None.) Abdominal Pain Score (Numeric/FACES): 8 - Related Data Allergies Allergy/AdvReac Type Severity Reaction Status Date / Time amoxicillin Allergy Hives Verified 02/05/18 10:31 Sulfa (Sulfonamide Allergy Rash Verified 02/05/18 10:31 Antibiotics) acetaminophen AdvReac Anxiety Verified 02/05/18 10:31 [From Lorcet (hydrocodone)] fexofenadine HCl AdvReac Anxiety Verified 02/05/18 10:31 [From Indira-D] hydrocodone bitartrate AdvReac Anxiety Verified 02/05/18 10:31 [From Lorcet (hydrocodone)] morphine AdvReac Anxiety Verified 02/05/18 10:31 oxycodone AdvReac Anxiety Verified 02/05/18 10:31 prochlorperazine edisylate AdvReac Anxiety Verified 02/05/18 10:31 [From Compazine] prochlorperazine maleate AdvReac Anxiety Verified 02/05/18 10:31 [From Compazine] propoxyphene napsylate AdvReac Anxiety Verified 02/05/18 10:31 [From Darvocet-N] pseudoephedrine HCl AdvReac Anxiety Verified 11/05/17 17:57 [From Indira-D] Home Meds: Home Meds Albuterol [Proventil HFA] 2 puff INH QID PRN #1 inhaler 01/02/17 [Rx] Gabapentin [Neurontin] 1,200 mg PO TID 06/29/17 [History] hydrOXYzine HCl [hydrOXYzine] 50 mg PO BID 06/29/17 [History] hydrOXYzine HCl [hydrOXYzine] 150 mg PO BEDTIME 06/29/17 [History] tiZANidine [Zanaflex] 4 mg PO ASDIRECTED 06/29/17 [History] Prazosin [Minpress] 4 mg PO BEDTIME 11/05/17 [History] Diazepam [Valium] 10 mg PO ASDIRECTED PRN 12/13/17 [History] HYDROmorphone [Dilaudid] 1 - 2 tab PO Q6H PRN 12/13/17 [History] Vortioxetine Hydrobromide [Trintellix] 10 mg PO DAILY 12/13/17 [History] Dicyclomine [Bentyl] 20 mg PO Q6H PRN #5 tablet 02/05/18 [Rx] metroNIDAZOLE [Flagyl] 500 mg PO Q8H #24 tab 02/05/18 [Rx] Past Medical History HEENT History: Reports: Other (See Below) Other HEENT History: dental carries Respiratory History: Reports: Asthma Other Respiratory History: "athletic asthma" Gastrointestinal History: Reports: Irritable Bowel Syndrome Genitourinary History: Reports: None Musculoskeletal History: Reports: Arthritis, Fibromyalgia, Other (See Below) Other Musculoskeletal History: DEGENERATIVE BONE DISORDER bursitis Neurological History: Reports: Concussion Psychiatric History: Reports: ADD, Addiction, Anxiety, Depression, Learning Disability, PTSD Oncologic (Cancer) History: Reports: Cervix - Past Surgical History GI Surgical History: Reports: Appendectomy, Cholecystectomy Female Surgical History: Reports: D&C, LEEP, Tubal Ligation Musculoskeletal Surgical History: Reports: Arthroscopic Knee, Other (See Below) Other Musculoskeletal Surgeries/Procedures:: neck surgery 2018-fusion C5C6 Social & Family History - Family History Family Medical History: Noncontributory - Tobacco Use Smoking Status *Q: Current Every Day Smoker (1ppd) Tobacco Use Within Last Twelve Months: Cigarettes - Caffeine Use Caffeine Use: Reports: Coffee, Energy Drinks, Soda, Tea - Living Situation & Occupation Occupation: Unemployed ED ROS GENERAL - Review of Systems Review Of Systems: See Below Constitutional: Reports: Fever, Chills, Weakness, Fatigue, Decreased Appetite Respiratory: Reports: No Symptoms Cardiovascular: Reports: No Symptoms GI/Abdominal: Reports: Abdominal Pain (lower abdominal pain), Diarrhea, Decreased Appetite, Nausea. Denies: Black Stool, Bloody Stool, Hematochezia, Vomiting : Reports: No Symptoms Musculoskeletal: Reports: Neck Pain (hx/o cervical fusion in december, but not bothersome at this time) Skin: Reports: No Symptoms Neurological: Reports: No Symptoms Psychiatric: Reports: No Symptoms Hematologic/Lymphatic: Reports: No Symptoms ED EXAM, GI/ABD - Physical Exam Exam: See Below Exam Limited By: No Limitations General Appearance: Alert, WD/WN, Mild Distress Eyes: Bilateral: Normal Appearance Throat/Mouth: Normal Inspection, Normal Lips, Normal Oropharynx (the oropharynx appears somewhat dry at this time), Normal Voice Head: Atraumatic, Normocephalic Neck: Normal Inspection, Supple, Non-Tender, Full Range of Motion, Other (scar on anterior neck from fusion surgery, healing appropriately) Respiratory/Chest: No Respiratory Distress, Lungs Clear, Normal Breath Sounds, No Accessory Muscle Use, Chest Non-Tender Cardiovascular: Normal Peripheral Pulses, Regular Rate, Rhythm GI/Abdominal Exam: Normal Bowel Sounds, Soft, No Organomegaly, No Distention, No Mass, Pelvis Stable, Tender (RLQ and LLQ tenderness to palpation). No: Guarding, Rigid Rectal (Female) Exam: Deferred Back Exam: No: CVA Tenderness (L), CVA Tenderness (R) Extremities: Normal Inspection, Normal Capillary Refill Neurological: Alert, Oriented, Normal Cognition Psychiatric: Normal Affect, Normal Mood Skin Exam: Warm, Dry, Intact, Normal Color, No Rash Lymphatic: No Adenopathy Course - Vital Signs Last Recorded V/S: Last Vital Signs Temp 36.8 C 02/05/18 09:53 Pulse 60 02/05/18 09:53 Resp 18 02/05/18 09:53 BP 120/74 02/05/18 09:53 Pulse Ox 99 02/05/18 09:53 Orthostatic Blood Pressure [ 112/87 Standing] Orthostatic Blood Pressure [ 127/79 Sitting] Orthostatic Blood Pressure [ 120/74 Supine] - Orders/Labs/Meds Orders: Active Orders 24 hr Category Date Time Status C DIFFICILE BY PCR W/NAP1 [MOLEC] Stat Lab 02/05/18 10:38 Ordered CULTURE STOOL + SHIGATOX [RM] Stat Lab 02/05/18 10:38 Ordered WBC, STOOL [OP] Stat Lab 02/05/18 10:38 Ordered Dextrose 5%-Lactated Ringers 1,000 ml Med 02/05/18 10:45 Active IV ASDIRECTED Dextrose 5%-Lactated Ringers 1,000 ml Med 02/05/18 13:00 Active IV ASDIRECTED Medication Orders Dextrose/Lactated Ringer's (Dextrose 5%-Lactated Ringers) 1,000 mls @ 999 mls/ hr IV ASDIRECTED RD Last Admin: 02/05/18 10:54 Dose: 999 mls/hr Dextrose/Lactated Ringer's (Dextrose 5%-Lactated Ringers) 1,000 mls @ 500 mls/ hr IV ASDIRECTED RD Labs: Laboratory Tests 02/05/18 02/05/18 Range/Units 10:10 10:10 WBC 10.86 H (3.98-10.04) K/mm3 RBC 4.37 (3.98-5.22) M/mm3 Hgb 14.1 (11.2-15.7) gm/L Hct 41.4 (34.1-44.9) % MCV 94.7 (79.4-94.8) fl MCH 32.3 H (25.6-32.2) pg MCHC 34.1 (32.2-35.5) g/dl RDW Std Deviation 45.2 (36.4-46.3) fL Plt Count 279 (182-369) K/mm3 MPV 11.4 (9.4-12.3) fl Neutrophils % (Manual) 65 H (40-60) % Band Neutrophils % 0 (0-10) % Lymphocytes % (Manual) 24 (20-40) % Atypical Lymphs % 0 % Monocytes % (Manual) 4 (2-10) % Eosinophils % (Manual) 7 H (0.7-5.8) % Basophils % (Manual) 0 L (0.1-1.2) Platelet Estimate Adequate Plt Morphology Comment Normal RBC Morph Comment Normal Sodium 137 (136-145) mEq/L Potassium 3.5 (3.5-5.1) mEq/L Chloride 103 (98-107) mEq/L Carbon Dioxide 23 (21-32) mEq/L Anion Gap 14.5 (5-15) BUN 6 L (7-18) mg/dL Creatinine 0.9 (0.55-1.02) mg/dL Est Cr Clr Drug Dosing 74.67 mL/min Estimated GFR (MDRD) > 60 (>60) mL/min BUN/Creatinine Ratio 6.7 L (14-18) Glucose 112 H (74-106) mg/dL Calcium 8.6 (8.5-10.1) mg/dL Magnesium 1.8 (1.8-2.4) mg/dl Total Bilirubin 0.5 (0.2-1.0) mg/dL AST 25 (15-37) U/L ALT 31 (14-59) U/L Alkaline Phosphatase 89 (46-116) U/L C-Reactive Protein 0.2 (<1.0) mg/dL Total Protein 7.7 (6.4-8.2) g/dl Albumin 3.6 (3.4-5.0) g/dl Globulin 4.1 gm/dL Albumin/Globulin Ratio 0.9 L (1-2) 02/05/18 11:00 Labs obtained from [facility] visit yesterday (02/04/18) are remarkable for WBC of 14.1, with neutrophils of 8.7 Meds: Medications Generic Name Dose Route Start Last Admin Trade Name Freq PRN Reason Stop Dose Admin Dextrose/Lactated Ringer's 1,000 mls @ 999 mls/hr 02/05/18 10:45 02/05/18 10: 54 Dextrose 5%-Lactated Ringers IV 999 mls/hr ASDIRECTED RD Administration Dextrose/Lactated Ringer's 1,000 mls @ 500 mls/hr 02/05/18 13:00 Dextrose 5%-Lactated Ringers IV ASDIRECTED RD Discontinued Medications Generic Name Dose Route Start Last Admin Trade Name Cheryl PRN Reason Stop Dose Admin Ondansetron HCl 4 mg 02/05/18 10:37 02/05/18 10:52 Zofran IVPUSH 02/05/18 10:38 4 mg ONETIME ONE Administration - Radiology Interpretation Free Text/Narrative:: 42-year-old female attends the ED with a 3 to four-day history of diarrhea. Predated by nausea. Associated intermittent abdominal cramping pain. Diarrhea is anywhere from 8-14 times per day. Described as loose watery and yellow without blood. Associated cramping. Patient has been on 3 courses of antibiotics since having cervical neck fusion December 05 2017. [facility] and took a sample there this morning for C. difficile enteritis but was told she would not get the results back until Friday. Patient states that he tries to eat anything solid it goes right through her. She been trying to keep up with her fluid intake. Notes nurses appreciate that she is orthostatic at this time. Plan IV D5 Ringer's lactate at open. Zofran 4 mg IV for nausea relief. Routine labs to be done to include C. difficile enterotoxin stools for WBCs and culture. - Re-Assessments/Exams Free Text/Narrative Re-Assessment/Exam: 02/05/18 11:00Orthostatic BP's done and she does have a slight ortho drop. We will start her on some IV fluids and obtain some routine labs which will include : CBC, Met panel, CRP, and stool sample if she is able to see if she may have a C-diff infection of her GI system. We are waiting to hear back from her pharmacy to see what 3 antibiotics she was taking so that we can better direct her care. 02/05/18 12:01 Labs are back. White count is mildly elevated at 10.86 with 65% neutrophils and no bands reported. Hemoglobin is 14.1 with hematocrit of 41.4. Blood counts 279,000. Sodium 137 with potassium low-normal at 3.5. Coronal 3 with bicarbonate 23. And a gap is 14.5 with a BUN of 6 creatinine is 0.9. GFR is greater than 60. Glucose is 112. Calcium is 8.6. Magnesium low normal at 1.8. Liver function is normal. In is 0.2. 02/05/18 12:24 patient has not been able to produce a stool for analysis at this time. Will give her something to eat for dinner and see if this doesn't produce a bowel movement. 02/05/18 13:15 patient still has not been able to produce a stool. Will wait another 45 minutes or so if no stools produced will put on Flagyl on suspicion of Clostridium difficile enteritis. 02/05/18 14:10 patient still doesn't feel like she's going to have a bowel movement. For decision made to start her on Flagyl by mouth 500 mg 3 times a day for the next 8 days in the suspicion that she has C. difficile enteritis. Will has been collected and sent to [facility] in [facility] for evaluation which unfortunately the results will not be back untill Friday. Will discharge her on clear fluids and advance diet as tolerated. She is to avoid all dairy products and no apple or grape juice until stools are formed backup. Also given a prescription for Bentyl 20 mg that she can use every 6 hours. For relief of abdominal cramping pain. Departure - Departure Time of Disposition: 14:05 Disposition: Home, Self-Care 01 Condition: Fair Clinical Impression: Volume depletion, gastrointestinal loss Diarrhea Qualifiers: Diarrhea type: unspecified type Qualified Code(s): R19.7 - Diarrhea, unspecified - Discharge Information *PRESCRIPTION DRUG MONITORING PROGRAM REVIEWED*: No *COPY OF PRESCRIPTION DRUG MONITORING REPORT IN PATIENT RAHEL: No Prescriptions: Dicyclomine [Bentyl] 20 mg PO Q6H PRN #5 tablet PRN Reason: Abdominal cramps/diarrhea metroNIDAZOLE [Flagyl] 500 mg PO Q8H #24 tab Instructions: Diarrhea, Adult, [id number] Referrals: Dinora Griffin MD [Primary Care Provider] - Forms: ED Department Discharge Additional Instructions: Evaluation the emergency room today in regards to 3-1/2 days quite significant diarrhea. No vomiting. Concern is that you may have antibody conduced colitis secondary to antibiotic usage over the last 6 weeks since you had your cervical spine surgery. You are not able to produce a sample for testing in the ED today. Was sent to [facility] and will likely be available on Friday. Lab tests done here revealed mild dehydration and potassium low-normal at 3.5. You were given intravenous fluids to provide rehydration. Also medicine for nausea and cramps. Treatment at home is clear fluids such as Gatorade or Powerade as these are very similar to intravenous fluids. Sipping 5 or 6 ounces per hour usually prevent diarrhea. You should stay away from all dairy products and no apple or grape juice until stools are formed backup. Suggest use of antibiotic Flagyl 500 mg 3 times daily for the next 8 days to clear up diarrhea that may be secondary to anabolic and his colitis. He should expect marked improvement over the next 48-72 hours if Clostridium difficile is the culprit organism and causing your diarrhea. If not better by Friday then contact your personal care physician or provider. Also use Bentyl 20 mg every 6 hours as needed for relief of dull cramping pain. - My Orders Last 24 Hours: My Active Orders 02/05/18 10:38 C DIFFICILE BY PCR W/NAP1 [MOLEC] Stat CULTURE STOOL + SHIGATOX [RM] Stat WBC, STOOL [OP] Stat 02/05/18 10:45 Dextrose 5%-Lactated Ringers 1,000 ml IV ASDIRECTED 02/05/18 13:00 Dextrose 5%-Lactated Ringers 1,000 ml IV ASDIRECTED - Assessment/Plan Last 24 Hours: My Active Orders 02/05/18 10:38 C DIFFICILE BY PCR W/NAP1 [MOLEC] Stat CULTURE STOOL + SHIGATOX [RM] Stat WBC, STOOL [OP] Stat 02/05/18 10:45 Dextrose 5%-Lactated Ringers 1,000 ml IV ASDIRECTED 02/05/18 13:00 Dextrose 5%-Lactated Ringers 1,000 ml IV ASDIRECTED
== END 2018-02-05 14:22 | disposition home or self-care (01) ==
LOC: JD.ED 09:52
DX: E86.9 Volume depletion, unspecified (principal); F17.210 Nicotine dependence, cigarettes, uncomplicated; Z79.899 Other long term (current) drug therapy; Z88.2 Allergy status to sulfonamides; Z88.6 Allergy status to analgesic agent; Z88.5 Allergy status to narcotic agent; Z88.1 Allergy status to other antibiotic agents
CPT/HCPCS: 36415; 80053; 83735; 85007; 85027; 86140; 96361; 96374; 99284; 99284-25; J2405; J7042

== ENCOUNTER 2018-06-13 10:17 | Emergency (ER) | payer MEDICARE, MEDICAID ==
[2018-06-13 10:27] VITALS: BP 138/85
--- NOTE | 2018-06-13 10:42 | EDM.PDOC ---
ED HPI GENERAL MEDICAL PROBLEM - General Chief Complaint: ENT Problem Stated Complaint: TEETH SURGEY-FACE SWELLING Time Seen by Provider: 06/13/18 10:41 Source of Information: Reports: Patient - History of Present Illness INITIAL COMMENTS - FREE TEXT/NARRATIVE: Patient is here for evaluation of an increase in swelling to the right side of her face, particularly below her eye. Patient states that she had major dental surgery on , 2 days ago, extracting the majority of her teeth with the exception of 6 front teeth. She is currently on clindamycin. She reports having pain medication at home but has not needed to take this as she states her pain is not significant. She is not diabetic. Has no history of frequent infections or slow healing wounds. She is a smoker. She denies any fever or chills. She is tolerating soft foods adequately but again just had the majority of her teeth removed. Denies any GI symptoms. States that the pain did not increase with the increase in swelling. Denies any changes in her vision. - Related Data Allergies Allergy/AdvReac Type Severity Reaction Status Date / Time amoxicillin Allergy Hives Verified 06/13/18 10:27 Sulfa (Sulfonamide Allergy Rash Verified 06/13/18 10:27 Antibiotics) acetaminophen AdvReac Anxiety Verified 06/13/18 10:27 [From Lorcet (hydrocodone)] fexofenadine HCl AdvReac Anxiety Verified 06/13/18 10:27 [From Indira-D] hydrocodone bitartrate AdvReac Anxiety Verified 06/13/18 10:27 [From Lorcet (hydrocodone)] morphine AdvReac Anxiety Verified 06/13/18 10:27 oxycodone AdvReac Anxiety Verified 06/13/18 10:27 prochlorperazine edisylate AdvReac Anxiety Verified 06/13/18 10:27 [From Compazine] prochlorperazine maleate AdvReac Anxiety Verified 06/13/18 10:27 [From Compazine] propoxyphene napsylate AdvReac Anxiety Verified 06/13/18 10:27 [From Darvocet-N] pseudoephedrine HCl AdvReac Anxiety Verified 06/13/18 10:27 [From Indira-D] Home Meds: Home Meds Gabapentin [Neurontin] 1,200 mg PO TID 06/29/17 [History] hydrOXYzine HCl [hydrOXYzine] 50 mg PO BID 06/29/17 [History] hydrOXYzine HCl [hydrOXYzine] 150 mg PO BEDTIME 06/29/17 [History] tiZANidine [Zanaflex] 4 mg PO ASDIRECTED 06/29/17 [History] Prazosin [Minpress] 4 mg PO BEDTIME 11/05/17 [History] Vortioxetine Hydrobromide [Trintellix] 20 mg PO DAILY 12/13/17 [History] Clindamycin HCl [Cleocin HCl] 300 mg PO TID 06/13/18 [History] Past Medical History HEENT History: Reports: Other (See Below) Other HEENT History: dental carries Respiratory History: Reports: Asthma Other Respiratory History: "athletic asthma" Gastrointestinal History: Reports: Irritable Bowel Syndrome Genitourinary History: Reports: None Musculoskeletal History: Reports: Arthritis, Fibromyalgia, Other (See Below) Other Musculoskeletal History: DEGENERATIVE BONE DISORDER bursitis Neurological History: Reports: Concussion Psychiatric History: Reports: ADD, Addiction, Anxiety, Depression, Learning Disability, PTSD Hematologic History: Reports: Anemia Oncologic (Cancer) History: Reports: Cervix - Infectious Disease History Infectious Disease History: Reports: C-Difficile, MRSA, Shingles Other Infectious Disease History: MRSA R) knee. - Past Surgical History HEENT Surgical History: Reports: Oral Surgery GI Surgical History: Reports: Appendectomy, Cholecystectomy Female Surgical History: Reports: D&C, LEEP, Tubal Ligation Musculoskeletal Surgical History: Reports: Arthroscopic Knee, Other (See Below) Other Musculoskeletal Surgeries/Procedures:: neck surgery 2018-fusion C5C6 Social & Family History - Family History Family Medical History: Noncontributory - Tobacco Use Smoking Status *Q: Current Every Day Smoker Years of Tobacco use: 30 Packs/Tins Daily: 1 - Caffeine Use Caffeine Use: Reports: None - Recreational Drug Use Recreational Drug Use: No - Living Situation & Occupation Occupation: Unemployed ED ROS ENT - Review of Systems Review Of Systems: See Below Constitutional: Denies: Fever, Chills, Malaise, Weakness HEENT: Reports: Dental Pain, Other (Right facial swelling). Denies: Eye Discharge, Eye Pain Respiratory: Reports: No Symptoms Cardiovascular: Reports: No Symptoms GI/Abdominal: Reports: No Symptoms Skin: Reports: Other (Facial swelling, R>L.) Neurological: Reports: No Symptoms Psychiatric: Reports: No Symptoms Hematologic/Lymphatic: Denies: Easy Bleeding, Easy Bruising ED EXAM, ENT - Physical Exam Exam: See Below Exam Limited By: No Limitations General Appearance: Alert, WD/WN, No Apparent Distress Eye Exam: Bilateral Eye: EOMI (NO pain with EOM.), Normal Fundi, PERRL Ears: Normal External Exam, Hearing Grossly Normal, Normal TMs Mouth/Throat: Other (Sutures in place to upper and lower were teeth have been removed. There is a small/trace amount of drainage. There is no swelling or erythema noted.) Head: Atraumatic, Normocephalic Neck: Normal Inspection, Non-Tender. No: Lymphadenopathy (L), Lymphadenopathy ( R) Respiratory/Chest: No Respiratory Distress, Lungs Clear, Normal Breath Sounds Cardiovascular: Regular Rate, Rhythm Neurological: Alert, Oriented Psychiatric: Normal Affect, Normal Mood Skin: Warm, Dry Course - Vital Signs Last Recorded V/S: Last Vital Signs Temp 98.3 F 06/13/18 10:24 Pulse 69 06/13/18 10:24 Resp 16 06/13/18 10:24 BP 138/85 06/13/18 10:24 Pulse Ox 100 06/13/18 10:24 - Re-Assessments/Exams Free Text/Narrative Re-Assessment/Exam: Patient had a increase in right facial swelling after dental extraction yesterday. There is a fluid collection below her right eye. EOM intact, no pain with eye movement. No changes in vision. Patient was also examined by Dr Coretta Brunner who agrees the swelling is related to recent extraction, no suspicion of acute infection or posterior eye swelling. Patient will continue on her clindamycin. These are taken medication as needed. She has an appointment scheduled to follow up with her dentist on Friday, she will keep this. She is advised to return to the emergency room for any worsening swelling, redness or pain to the area or if fever greater than 101F. 06/13/18 11:14 Departure - Departure Time of Disposition: 11:09 Disposition: Home, Self-Care 01 Condition: Good Clinical Impression: Right facial swelling History of tooth extraction Qualifiers: Tooth loss class: unspecified tooth loss Qualified Code(s): K08.409 - Partial loss of teeth, unspecified cause, unspecified class - Discharge Information Referrals: Dinora Griffin MD [Primary Care Provider] - Forms: ED Department Discharge Additional Instructions: You evaluated the emergency department today for swelling on the right side of your face after having a fair amount of teeth removed. This swelling appears to be related to the healing after the extent of the extraction. You'll be discharged home, you will take an anti-inflammatory and pain medication as needed. Continue on the antibiotic. Follow-up with her dentist on Friday as planned. Certainly if the area should become more painful, red or even more swollen recently had a fever greater than 101F don't hesitate to return to the emergency room.
== END 2018-06-13 11:23 | disposition home or self-care (01) ==
LOC: JD.ED 10:17
DX: R22.0 Localized swelling, mass and lump, head (principal); K08.409 Partial loss of teeth, unspecified cause, unspecified class; Z88.1 Allergy status to other antibiotic agents; Z88.2 Allergy status to sulfonamides; Z88.8 Allergy status to other drugs, medicaments and biological substances; Z79.899 Other long term (current) drug therapy; F17.210 Nicotine dependence, cigarettes, uncomplicated
CPT/HCPCS: 99282; 99283

== ENCOUNTER 2018-06-29 20:54 | Emergency (ER) | payer MEDICARE, MEDICAID ==
[2018-06-29 21:20] VITALS: BP 123/77
[2018-06-29] MEDS ORDERED: HYDROmorphone 1 MG/ML Syringe IM ONE (21:38)
--- NOTE | 2018-06-29 21:44 | EDM.PDOC ---
ED HPI GENERAL MEDICAL PROBLEM - General Chief Complaint: Neck Problem Stated Complaint: EXTREME NECK PAIN SURGERY LAST AUG Time Seen by Provider: 06/29/18 21:20 Source of Information: Reports: Patient, Family History Limitations: Reports: No Limitations - History of Present Illness INITIAL COMMENTS - FREE TEXT/NARRATIVE: The patient presents with severe neck pain. She says this started today. She had neck surgery done by Dr Stacie orlando in December. She was doing good until today. She did not fall. She thinks her dog may be pulling her to hard. She denies any numbness or weakness in her arms. Onset: Gradual Duration: Hour(s): Location: Reports: Neck Quality: Reports: Sharp Severity: Severe Improves with: Reports: Immobilization Worsens with: Reports: Movement Associated Symptoms: Reports: No Other Symptoms Neck Pain Score (Numeric/FACES): 9 - Related Data Allergies Allergy/AdvReac Type Severity Reaction Status Date / Time amoxicillin Allergy Hives Verified 06/13/18 10:27 Sulfa (Sulfonamide Allergy Rash Verified 06/13/18 10:27 Antibiotics) acetaminophen AdvReac Anxiety Verified 06/13/18 10:27 [From Lorcet (hydrocodone)] fexofenadine HCl AdvReac Anxiety Verified 06/13/18 10:27 [From Indira-D] hydrocodone bitartrate AdvReac Anxiety Verified 06/13/18 10:27 [From Lorcet (hydrocodone)] morphine AdvReac Anxiety Verified 06/13/18 10:27 oxycodone AdvReac Anxiety Verified 06/13/18 10:27 prochlorperazine edisylate AdvReac Anxiety Verified 06/13/18 10:27 [From Compazine] prochlorperazine maleate AdvReac Anxiety Verified 06/13/18 10:27 [From Compazine] propoxyphene napsylate AdvReac Anxiety Verified 06/13/18 10:27 [From Darvocet-N] pseudoephedrine HCl AdvReac Anxiety Verified 06/13/18 10:27 [From Indira-D] Home Meds: Home Meds Gabapentin [Neurontin] 1,200 mg PO TID 06/29/17 [History] hydrOXYzine HCl [hydrOXYzine] 50 mg PO TID 06/29/17 [History] hydrOXYzine HCl [hydrOXYzine] 150 mg PO BEDTIME 06/29/17 [History] tiZANidine [Zanaflex] 4 mg PO ASDIRECTED 06/29/17 [History] Prazosin [Minpress] 4 mg PO BEDTIME 11/05/17 [History] Vortioxetine Hydrobromide [Trintellix] 20 mg PO DAILY 12/13/17 [History] HYDROmorphone [Dilaudid] 2 mg PO Q6H PRN #20 tab 06/29/18 [Rx] Past Medical History HEENT History: Reports: Other (See Below) Other HEENT History: dental carries Respiratory History: Reports: Asthma Other Respiratory History: "athletic asthma" Gastrointestinal History: Reports: Irritable Bowel Syndrome Genitourinary History: Reports: None Musculoskeletal History: Reports: Arthritis, Fibromyalgia, Other (See Below) Other Musculoskeletal History: DEGENERATIVE BONE DISORDER bursitis Neurological History: Reports: Concussion Psychiatric History: Reports: ADD, Addiction, Anxiety, Depression, Learning Disability, PTSD Hematologic History: Reports: Anemia Oncologic (Cancer) History: Reports: Cervix - Infectious Disease History Infectious Disease History: Reports: C-Difficile, MRSA, Shingles Other Infectious Disease History: MRSA R) knee. - Past Surgical History HEENT Surgical History: Reports: Oral Surgery GI Surgical History: Reports: Appendectomy, Cholecystectomy Female Surgical History: Reports: D&C, LEEP, Tubal Ligation Musculoskeletal Surgical History: Reports: Arthroscopic Knee, Other (See Below) Other Musculoskeletal Surgeries/Procedures:: neck surgery 2018-fusion C5C6 Social & Family History - Family History Family Medical History: Noncontributory - Tobacco Use Smoking Status *Q: Current Every Day Smoker Years of Tobacco use: 32 Packs/Tins Daily: 1 - Caffeine Use Caffeine Use: Reports: Coffee, Energy Drinks, Soda - Recreational Drug Use Recreational Drug Use: No - Living Situation & Occupation Occupation: Unemployed ED ROS GENERAL - Review of Systems Review Of Systems: See Below Constitutional: Reports: No Symptoms HEENT: Reports: No Symptoms Respiratory: Reports: No Symptoms Cardiovascular: Reports: No Symptoms Endocrine: Reports: No Symptoms GI/Abdominal: Reports: No Symptoms, Mucous in Stool Musculoskeletal: Reports: Neck Pain ED EXAM, UPPER BACK/NECK PAIN - Physical Exam Exam: See Below Exam Limited By: No Limitations General Appearance: Alert, No Apparent Distress Ears Exam: Normal External Exam Nose Exam: Normal Inspection Head Exam: Atraumatic, Normocephalic Neck Exam: Other (Pain upon palpation to the back of the neck) Cardiovascular/Respiratory: Regular Rate, Rhythm, No M/R/G, Normal Breath Sounds , No Respiratory Distress GI/Abdominal: Soft, Non-Tender, No Organomegaly, No Mass Course - Vital Signs Last Recorded V/S: Last Vital Signs Temp 98.2 F 06/29/18 21:17 Pulse 69 06/29/18 21:17 Resp 20 06/29/18 21:17 BP 123/77 06/29/18 21:17 Pulse Ox 97 06/29/18 21:17 - Orders/Labs/Meds Orders: Active Orders 24 hr Category Date Time Status HYDROmorphone [Dilaudid] Med 06/29/18 21:38 Once 1 mg IM ONETIME ONE - Re-Assessments/Exams Free Text/Narrative Re-Assessment/Exam: 06/29/18 21:42 I ordered a shot of dilaudid 1mg IM. She will call Dr Quinones's office in the morning and see if he wants another MRI or what. Departure - Departure Time of Disposition: 21:45 Disposition: Home, Self-Care 01 Condition: Good Clinical Impression: Cervical pain (neck) - Discharge Information *PRESCRIPTION DRUG MONITORING PROGRAM REVIEWED*: No *COPY OF PRESCRIPTION DRUG MONITORING REPORT IN PATIENT RAHEL: No Prescriptions: HYDROmorphone [Dilaudid] 2 mg PO Q6H PRN #20 tab PRN Reason: Pain Referrals: Dinora Griffin MD [Primary Care Provider] - Additional Instructions: Call Dr Quinones's office in the morning. Take your medication as prescribed. Take the dilaudid as needed for pain. Please return if you are worse. - My Orders Last 24 Hours: My Active Orders 06/29/18 21:38 HYDROmorphone [Dilaudid] 1 mg IM ONETIME ONE - Assessment/Plan Last 24 Hours: My Active Orders 06/29/18 21:38 HYDROmorphone [Dilaudid] 1 mg IM ONETIME ONE
== END 2018-06-29 22:33 | disposition home or self-care (01) ==
LOC: JD.ED 20:54
DX: M54.2 Cervicalgia (principal); F17.210 Nicotine dependence, cigarettes, uncomplicated; Z90.49 Acquired absence of other specified parts of digestive tract; Z98.51 Tubal ligation status; Z98.890 Other specified postprocedural states; Z88.5 Allergy status to narcotic agent; Z88.6 Allergy status to analgesic agent; Z88.8 Allergy status to other drugs, medicaments and biological substances; Z88.1 Allergy status to other antibiotic agents; Z88.2 Allergy status to sulfonamides
CPT/HCPCS: 96372; 99283; J1170

== ENCOUNTER 2018-10-27 12:43 | Emergency (ER) | payer MEDICARE, MEDICAID ==
[2018-10-27 12:59] VITALS: BP 148/83
[2018-10-27] MEDS ORDERED: Ketorolac 60 MG/2 ML SDV IM ONE (13:24)
--- NOTE | 2018-10-27 13:26 | EDM.PDOC ---
ED HPI GENERAL MEDICAL PROBLEM - General Chief Complaint: Upper Extremity Injury/Pain Stated Complaint: LEFT SHOULDER PAIN Time Seen by Provider: 10/27/18 13:25 Source of Information: Reports: Patient History Limitations: Reports: No Limitations - History of Present Illness INITIAL COMMENTS - FREE TEXT/NARRATIVE: 43 year old female presents for evaluation and treatment of left shoulder pain. Patient reports that she fell in February, about 8 months ago. She was seen in the ER, negative xray. States that she slipped on some urine from a new puppy and hyperextended her shoulder. She has been seeing orthopedics for this but states that and improved. Now over the last week or so the pain has returned and is much worse. Reports pain around the shoulder. She has not had a new falls or trauma to the shoulder. She denies a numbness or tingling into the arm. Reports pain with range of motion. Patient has a history of degenerative disc disease in her neck. She surgery to her cervical spine by Dr. Zuleta a few years ago. She has not seen him in follow -up recently. States she has not had problems with her neck. 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(s) Left Shoulder Pain Score (Numeric/FACES): 9 - Related Data Allergies Allergy/AdvReac Type Severity Reaction Status Date / Time amoxicillin Allergy Hives Verified 10/27/18 12:51 Sulfa (Sulfonamide Allergy Rash Verified 10/27/18 12:51 Antibiotics) acetaminophen AdvReac Anxiety Verified 10/27/18 12:51 [From Lorcet (hydrocodone)] fexofenadine HCl AdvReac Anxiety Verified 10/27/18 12:51 [From Indira-D] hydrocodone bitartrate AdvReac Anxiety Verified 10/27/18 12:51 [From Lorcet (hydrocodone)] morphine AdvReac Anxiety Verified 10/27/18 12:51 oxycodone AdvReac Anxiety Verified 10/27/18 12:51 prochlorperazine edisylate AdvReac Anxiety Verified 10/27/18 12:51 [From Compazine] prochlorperazine maleate AdvReac Anxiety Verified 10/27/18 12:51 [From Compazine] propoxyphene napsylate AdvReac Anxiety Verified 10/27/18 12:51 [From Darvocet-N] pseudoephedrine HCl AdvReac Anxiety Verified 10/27/18 12:51 [From Indira-D] Home Meds: Home Meds Gabapentin [Neurontin] 1,200 mg PO TID 06/29/17 [History] hydrOXYzine HCl [hydrOXYzine] 50 mg PO TID 06/29/17 [History] hydrOXYzine HCl [hydrOXYzine] 150 mg PO BEDTIME 06/29/17 [History] tiZANidine [Zanaflex] 4 mg PO ASDIRECTED 06/29/17 [History] Prazosin [Minpress] 4 mg PO BEDTIME 11/05/17 [History] Vortioxetine Hydrobromide [Trintellix] 20 mg PO DAILY 12/13/17 [History] Ibuprofen 800 mg PO TID 10/27/18 [History] Naproxen 500 mg PO BID PRN #14 tablet 10/27/18 [Rx] Orphenadrine [Norflex] 100 mg PO BID PRN #14 tab 10/27/18 [Rx] Past Medical History HEENT History: Reports: Other (See Below) Other HEENT History: dental carries Cardiovascular History: Reports: None Respiratory History: Reports: Asthma Other Respiratory History: "athletic asthma" Gastrointestinal History: Reports: Irritable Bowel Syndrome Genitourinary History: Reports: None Musculoskeletal History: Reports: Arthritis, Fibromyalgia, Other (See Below) Other Musculoskeletal History: DEGENERATIVE BONE DISORDER bursitis Neurological History: Reports: Concussion Psychiatric History: Reports: ADD, Addiction, Anxiety, Depression, Learning Disability, PTSD Endocrine/Metabolic History: Reports: None Hematologic History: Reports: Anemia Immunologic History: Reports: None Oncologic (Cancer) History: Reports: Cervix Dermatologic History: Reports: None - Infectious Disease History Infectious Disease History: Reports: C-Difficile, MRSA, Shingles Other Infectious Disease History: MRSA R) knee. - Past Surgical History Head Surgeries/Procedures: Reports: None HEENT Surgical History: Reports: Oral Surgery GI Surgical History: Reports: Appendectomy, Cholecystectomy Female Surgical History: Reports: D&C, Endometrial Ablation, LEEP, Tubal Ligation Musculoskeletal Surgical History: Reports: Arthroscopic Knee, Other (See Below) Other Musculoskeletal Surgeries/Procedures:: neck surgery 2018-fusion C5C6 Social & Family History - Family History Family Medical History: Noncontributory - Tobacco Use Smoking Status *Q: Current Every Day Smoker Years of Tobacco use: 33 Packs/Tins Daily: 1 - Caffeine Use Caffeine Use: Reports: Coffee, Energy Drinks, Tea - Recreational Drug Use Recreational Drug Use: Yes Drug Use in Last 12 Months: No Recreational Drug Type: Reports: Cocaine, Marijuana/Hashish, Methamphetamine - Living Situation & Occupation Occupation: Unemployed Review of Systems - Review of Systems Review Of Systems: See Below Musculoskeletal: Reports: Shoulder Pain (left), Other (reports decreased ROM). Denies: Neck Pain Neurological: Denies: Numbness, Tingling ED EXAM, GENERAL - Physical Exam Exam: See Below Exam Limited By: No Limitations General Appearance: Alert, WD/WN, No Apparent Distress Neck: Normal Inspection, Supple, Non-Tender, Full Range of Motion Respiratory/Chest: No Respiratory Distress, Lungs Clear, Normal Breath Sounds Cardiovascular: Normal Peripheral Pulses, Regular Rate, Rhythm Extremities: Normal Inspection, Normal Capillary Refill, Limited Range of Motion (due to pain, able to flex or extend shoudler , can abduct about 20 degrees ). No: Increased Warmth, Redness Neurological: Alert, Oriented, Normal Cognition Psychiatric: Normal Affect, Normal Mood Skin Exam: Warm, Dry, Normal Color Course - Vital Signs Last Recorded V/S: Last Vital Signs Temp 97.5 F 10/27/18 12:57 Pulse 81 10/27/18 12:57 Resp 16 10/27/18 12:57 BP 148/83 H 10/27/18 12:57 Pulse Ox 99 10/27/18 12:57 - Orders/Labs/Meds Meds: Medications Discontinued Medications Generic Name Dose Route Start Last Admin Trade Name Cheryl PRN Reason Stop Dose Admin Ketorolac Tromethamine 60 mg 10/27/18 13:24 10/27/18 13:35 Toradol IM 10/27/18 13:25 60 mg ONETIME ONE Administration - Radiology Interpretation Free Text/Narrative:: Left shoulder: Three views of the left shoulder were obtained. Comparison: No previous shoulder exam. Glenohumeral joint and acromioclavicular joint appears within normal limits. No fracture, dislocation or other bony abnormality is identified. No abnormal soft tissue calcifications are seen. Impression: 1. No abnormality is appreciated on left shoulder exam. - Re-Assessments/Exams Free Text/Narrative Re-Assessment/Exam: 10/27/18 14:19 Reviewed the x-ray results with the patient. Naproxen and Norflex for pain relief. Recommend follow-up with orthopedics as planned. Records show that she had an appointment for an MRI but she did not show up. I will leave this up to Dr. Lewis if feels that they need to pursue an MRI. Discharge instructions as documented. Departure - Departure Time of Disposition: 14:20 Disposition: Home, Self-Care 01 Condition: Good Clinical Impression: Shoulder pain - Discharge Information *PRESCRIPTION DRUG MONITORING PROGRAM REVIEWED*: Yes *COPY OF PRESCRIPTION DRUG MONITORING REPORT IN PATIENT RAHEL: No Prescriptions: Naproxen 500 mg PO BID PRN #14 tablet PRN Reason: Pain Orphenadrine [Norflex] 100 mg PO BID PRN #14 tab PRN Reason: Muscle Spasm Referrals: Dinora Griffin MD [Primary Care Provider] - Kirt Lewis MD [Physician] - Forms: ED Department Discharge Additional Instructions: Follow-up with orthopedics as planned. If you feel you need to be seen sooner call Dr. Lewis's office to see if he has a cancellation and can be seen sooner. Take the Norflex as prescribed. 1 tab twice a day. Do not drive or operate machinery until you know how this medication will affect you as this medication may make you drowsy. Naproxen 1 tablet twice a day as needed for pain. Unfortunately, given that this is a chronic problem the ER does not prescribe narcotics for chronic pain management. If you feel that you need further pain management for your shoulder problem follow-up with either your primary care provider or Dr. Lewis. Utilize ice and heat for additional pain relief. Please return to the ER if your symptoms change or worsen.
--- NOTE | 2018-10-27 14:15 | CR ---
Left shoulder: Three views of the left shoulder were obtained. Comparison: No previous shoulder exam. Glenohumeral joint and acromioclavicular joint appears within normal limits. No fracture, dislocation or other bony abnormality is identified. No abnormal soft tissue calcifications are seen. Impression: 1. No abnormality is appreciated on left shoulder exam. Diagnostic code #1
== END 2018-10-27 14:15 | disposition home or self-care (01) ==
LOC: JD.ED 12:43
DX: M25.512 Pain in left shoulder (principal); F41.9 Anxiety disorder, unspecified; F32.9 Major depressive disorder, single episode, unspecified; Z88.2 Allergy status to sulfonamides; Z88.1 Allergy status to other antibiotic agents; Z88.6 Allergy status to analgesic agent; Z88.5 Allergy status to narcotic agent; Z88.8 Allergy status to other drugs, medicaments and biological substances; Z79.899 Other long term (current) drug therapy; Z86.14 Personal history of Methicillin resistant Staphylococcus aureus infection; F17.210 Nicotine dependence, cigarettes, uncomplicated
CPT/HCPCS: 73030; 96372; 99283; J1885

== ENCOUNTER 2019-05-11 11:38 | Emergency (ER) | payer MEDICARE, MEDICAID ==
[2019-05-11 11:53] VITALS: BP 132/86; PULSE 79
[2019-05-11] MEDS ORDERED: Ondansetron 4 MG Tab.DIS PO ONE (12:14)
--- NOTE | 2019-05-11 14:00 | EDM.PDOC ---
ED HPI GENERAL MEDICAL PROBLEM - General Chief Complaint: Respiratory Problem Stated Complaint: FLU SYMPTOMS Time Seen by Provider: 05/11/19 12:00 Source of Information: Reports: Patient History Limitations: Reports: No Limitations - History of Present Illness INITIAL COMMENTS - FREE TEXT/NARRATIVE: The patient presents with a cough, congestion, fever, chills, body aches and not feeling well. This has been going on since April 30. She has sinus pressure and pain. She has a sore throat at times. Onset: Gradual Duration: Week(s): Location: Reports: Generalized Quality: Reports: Ache Severity: Moderate Improves with: Reports: None Worsens with: Reports: None Associated Symptoms: Reports: No Other Symptoms Generalized Pain Score (Numeric/FACES): 6 - Related Data Allergies Allergy/AdvReac Type Severity Reaction Status Date / Time amoxicillin Allergy Hives Verified 03/23/19 15:42 Sulfa (Sulfonamide Allergy Rash Verified 03/23/19 15:42 Antibiotics) acetaminophen AdvReac Anxiety Verified 03/23/19 15:42 [From Lorcet (hydrocodone)] fexofenadine HCl AdvReac Anxiety Verified 03/23/19 15:42 [From Indira-D] hydrocodone bitartrate AdvReac Anxiety Verified 03/23/19 15:42 [From Lorcet (hydrocodone)] morphine AdvReac Anxiety Verified 03/23/19 15:42 oxycodone AdvReac Anxiety Verified 03/23/19 15:42 prochlorperazine edisylate AdvReac Anxiety Verified 03/23/19 15:42 [From Compazine] prochlorperazine maleate AdvReac Anxiety Verified 03/23/19 15:42 [From Compazine] propoxyphene napsylate AdvReac Anxiety Verified 03/23/19 15:42 [From Darvocet-N] pseudoephedrine HCl AdvReac Anxiety Verified 03/23/19 15:42 [From Indira-D] Home Meds: Home Meds Gabapentin [Neurontin] 1,200 mg PO TID 06/29/17 [History] hydrOXYzine HCL [hydrOXYzine] 50 mg PO TID 06/29/17 [History] tiZANidine [Zanaflex] 8 mg PO TID 06/29/17 [History] Ibuprofen 800 mg PO TID PRN 10/27/18 [History] Albuterol [Proventil HFA] 2 puff INH Q4H PRN 03/23/19 [History] Lurasidone HCl [Latuda] 20 mg PO DAILY 03/23/19 [History] tiZANidine HCl [Zanaflex] 8 mg PO QPM 03/23/19 [History] traZODone HCl [Trazodone HCl] 100 mg PO BEDTIME 03/23/19 [History] Azithromycin [Zithromax] 250 mg PO DAILY #6 tab 05/11/19 [Rx] Codeine/Promethazine [Phenergan with Codeine] 5 - 10 ml PO Q6HR PRN #300 ml 11/21 [Rx] HYDROmorphone [Dilaudid] 2 mg PO ASDIRECTED PRN 05/11/19 [History] Past Medical History HEENT History: Reports: Other (See Below) Other HEENT History: dental carries Cardiovascular History: Reports: None Respiratory History: Reports: Asthma Other Respiratory History: "athletic asthma" Gastrointestinal History: Reports: Irritable Bowel Syndrome Genitourinary History: Reports: None 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 Musculoskeletal History: Reports: Arthritis, Fibromyalgia, Other (See Below) Other Musculoskeletal History: DEGENERATIVE BONE DISORDER bursitis Neurological History: Reports: Concussion Other Neuro History: cervical radiculopathy, cerviclagia Psychiatric History: Reports: ADD, Addiction, Anxiety, Depression, Learning Disability, PTSD Endocrine/Metabolic History: Reports: None Hematologic History: Reports: Anemia Immunologic History: Reports: None Oncologic (Cancer) History: Reports: Cervix Dermatologic History: Reports: None - Infectious Disease History Infectious Disease History: Reports: C-Difficile, MRSA, Shingles Other Infectious Disease History: MRSA R) knee. - Past Surgical History Head Surgeries/Procedures: Reports: None Cardiovascular Surgical History: Reports: None Female Surgical History: Reports: D&C, Endometrial Ablation, LEEP, Tubal Ligation Other Female Surgeries/Procedures: BLADDER SURGERY, LEAP PROCEDURE Endocrine Surgical History: Reports: None Other Musculoskeletal Surgeries/Procedures:: neck surgery 2018-fusion C5C6 Oncologic Surgical History: Reports: None Social & Family History - Family History Family Medical History: Noncontributory - Tobacco Use Smoking Status *Q: Current Every Day Smoker Years of Tobacco use: 30 Packs/Tins Daily: 1 - Caffeine Use Caffeine Use: Reports: Coffee, Soda - Recreational Drug Use Recreational Drug Use: No - Living Situation & Occupation Occupation: Unemployed ED ROS GENERAL - Review of Systems Review Of Systems: See Below Constitutional: Reports: No Symptoms HEENT: Reports: Other (Congestion and runny nose) Respiratory: Reports: Cough Cardiovascular: Reports: No Symptoms Endocrine: Reports: No Symptoms GI/Abdominal: Reports: No Symptoms : Reports: No Symptoms Musculoskeletal: Reports: No Symptoms ED EXAM, GENERAL - Physical Exam Exam: See Below Exam Limited By: No Limitations General Appearance: Alert, No Apparent Distress Ears: Normal External Exam Nose: Normal Inspection Throat/Mouth: Normal Inspection Head: Atraumatic, Normocephalic Neck: Normal Inspection Respiratory/Chest: No Respiratory Distress, Lungs Clear, Normal Breath Sounds Cardiovascular: Regular Rate, Rhythm, No Edema, No Murmur GI/Abdominal: Soft, Non-Tender, No Organomegaly, No Mass Extremities: Normal Inspection Course - Vital Signs Last Recorded V/S: Last Vital Signs Temp 97.9 F 05/11/19 11:52 Pulse 79 05/11/19 11:52 Resp 20 05/11/19 11:52 BP 132/86 05/11/19 11:52 Pulse Ox 99 05/11/19 11:52 - Orders/Labs/Meds Orders: Active Orders 24 hr Category Date Time Status CXR [Chest 2V] [CR] Stat Exams 05/11/19 12:15 Taken Meds: Medications Discontinued Medications Generic Name Dose Route Start Last Admin Trade Name Namq PRN Reason Stop Dose Admin Ondansetron HCl 4 mg 05/11/19 12:14 05/11/19 12:26 Zofran Odt PO 05/11/19 12:15 4 mg ONETIME ONE Administration - Re-Assessments/Exams Free Text/Narrative Re-Assessment/Exam: 05/11/19 13:57 Her CXR looks good and her influenza is negative. Departure - Departure Time of Disposition: 14:00 Disposition: Home, Self-Care 01 Condition: Good Clinical Impression: Bronchitis Sinusitis Qualifiers: Sinusitis location: frontal Chronicity: acute Recurrence: non-recurrent Qualified Code(s): J01.10 - Acute frontal sinusitis, unspecified - Discharge Information *PRESCRIPTION DRUG MONITORING PROGRAM REVIEWED*: Not Applicable *COPY OF PRESCRIPTION DRUG MONITORING REPORT IN PATIENT RAHEL: Not Applicable Prescriptions: Codeine/Promethazine [Phenergan with Codeine] 5 - 10 ml PO Q6HR PRN #300 ml PRN Reason: Cough Azithromycin [Zithromax] 250 mg PO DAILY #6 tab Referrals: Laine Stovall PA-C [Primary Care Provider] - 1 Week Additional Instructions: Take the medication as prescribed. Take tylenol or motrin for any fever or pain. Please return if you are worse. Sepsis Event Note - Evaluation Sepsis Screening Result: No Definite Risk - Focused Exam Vital Signs: Vital Signs Temp Pulse Resp BP Pulse Ox 05/11/19 11:52 97.9 F 79 20 132/86 99 Date Exam was Performed: 05/11/19 Time Exam was Performed: 13:55 - My Orders Last 24 Hours: My Active Orders 05/11/19 12:15 CXR [Chest 2V] [CR] Stat - Assessment/Plan Last 24 Hours: My Active Orders 05/11/19 12:15 CXR [Chest 2V] [CR] Stat
--- NOTE | 2019-05-11 15:32 | CR ---
Chest: Two views of the chest were obtained. Comparison: Prior chest x-ray of 03/16/19. Heart size and mediastinum are normal. Lungs are clear with no acute parenchymal change. Bony structures are unremarkable. Prior cholecystectomy noted with surgical clips seen within the upper right abdomen. Impression: 1. Nothing acute is seen on two-view chest x-ray. Diagnostic code #2 This report was dictated in [place] Standard Time
== END 2019-05-11 14:10 | disposition home or self-care (01) ==
LOC: JD.ED 11:38
DX: J01.10 Acute frontal sinusitis, unspecified (principal); J45.909 Unspecified asthma, uncomplicated; F32.9 Major depressive disorder, single episode, unspecified; F17.210 Nicotine dependence, cigarettes, uncomplicated; Z79.899 Other long term (current) drug therapy; Z88.0 Allergy status to penicillin; Z88.2 Allergy status to sulfonamides; Z88.5 Allergy status to narcotic agent; Z88.6 Allergy status to analgesic agent; Z88.8 Allergy status to other drugs, medicaments and biological substances
CPT/HCPCS: 71046; 87804; 99283; A9270

== ENCOUNTER 2019-06-15 11:30 | Emergency (ER) | payer MEDICARE, MEDICAID ==
[2019-06-15 11:59] VITALS: BP 123/94; PULSE 76
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
[2019-06-15] MEDS ORDERED: Albuterol/Ipratropium 3.0-0.5 MG/3 ML Neb Soln NEB ONE (14:01)
--- NOTE | 2019-06-15 14:25 | CR ---
Chest: Two views of the chest were obtained. Comparison: Prior chest x-ray of 05/11/19. Slight parenchymal density is seen within the left base. This is without change from previous exam and presumably represents an area of scarring. Lungs otherwise are clear. Heart size and mediastinum are normal. Previous cervical spine surgery is seen. Impression: 1. Findings as noted above. 2. Nothing acute is appreciated. Diagnostic code #2 Study was dictated in [place] Standard Time
== END 2019-06-15 16:12 | disposition home or self-care (01) ==
LOC: JD.ED 11:30
DX: T59.811A Toxic effect of smoke, accidental (unintentional), initial encounter (principal); J68.9 Unspecified respiratory condition due to chemicals, gases, fumes and vapors; J45.909 Unspecified asthma, uncomplicated; M19.90 Unspecified osteoarthritis, unspecified site; F17.210 Nicotine dependence, cigarettes, uncomplicated; Z88.1 Allergy status to other antibiotic agents; Z88.0 Allergy status to penicillin; Z88.2 Allergy status to sulfonamides; Z88.6 Allergy status to analgesic agent; Z88.8 Allergy status to other drugs, medicaments and biological substances; Z88.5 Allergy status to narcotic agent; Z79.51 Long term (current) use of inhaled steroids; Z79.899 Other long term (current) drug therapy
CPT/HCPCS: 71046; 71046-26; 87081; 87430; 87804; 94640; 99283; 99285-25; J7620-GY

== ENCOUNTER 2020-01-17 13:18 | Emergency (ER) | payer MEDICARE, MEDICAID ==
[2020-01-17 13:43] VITALS: BP 136/88; PULSE 80
[2020-01-17] MEDS ORDERED: Ketorolac 60 MG/2 ML SDV IM ONE (13:56)
--- NOTE | 2020-01-17 14:09 | EDM.PDOC ---
ED HPI GENERAL MEDICAL PROBLEM - General Chief Complaint: Neck Problem Stated Complaint: NECK PAIN Time Seen by Provider: 01/17/20 13:36 Source of Information: Reports: Patient History Limitations: Reports: No Limitations - History of Present Illness INITIAL COMMENTS - FREE TEXT/NARRATIVE: Patient is a 44-year-old female presenting to the emergency department with complaints of chronic neck pain, which has been worsening over the last 2 months. Patient states that she had a fusion of C5-C6 a couple years back. She had been doing well, however over the last 2 months she has been getting increased pain to her neck which she states causes headaches. She has not been on contact with her neurosurgeon, Dr. Lowery or seen her PCP, Farzaneh Brock. She has been using ibuprofen 800mg TID which she states doesn't help much. She denies any new injury. She is concerned that the hardware from her fusion may be displaced. Other Treatments ORTHOPEDIC NURSE PRACTITIONER: motrin Posterior Neck Pain Score (Numeric/FACES): 9 - Related Data Allergies Allergy/AdvReac Type Severity Reaction Status Date / Time amoxicillin Allergy Hives Verified 06/15/19 11:59 Sulfa (Sulfonamide Allergy Rash Verified 06/15/19 11:59 Antibiotics) acetaminophen AdvReac Anxiety Verified 06/15/19 11:59 [From Lorcet (hydrocodone)] fexofenadine HCl AdvReac Anxiety Verified 06/15/19 11:59 [From Indira-D] hydrocodone bitartrate AdvReac Anxiety Verified 06/15/19 11:59 [From Lorcet (hydrocodone)] morphine AdvReac Anxiety Verified 06/15/19 11:59 oxycodone AdvReac Anxiety Verified 06/15/19 11:59 prochlorperazine edisylate AdvReac Anxiety Verified 06/15/19 11:59 [From Compazine] prochlorperazine maleate AdvReac Anxiety Verified 06/15/19 11:59 [From Compazine] propoxyphene napsylate AdvReac Anxiety Verified 06/15/19 11:59 [From Darvocet-N] pseudoephedrine HCl AdvReac Anxiety Verified 03/23/19 15:42 [From Indira-D] Home Meds: Home Meds Gabapentin [Neurontin] 1,200 mg PO TID 06/29/17 [History] hydrOXYzine HCL [hydrOXYzine] 50 mg PO TID 06/29/17 [History] tiZANidine [Zanaflex] 4 mg PO WITHLUNCH 06/29/17 [History] Ibuprofen 800 mg PO TID PRN 10/27/18 [History] Albuterol [Proventil HFA] 2 puff INH Q4H PRN 03/23/19 [History] Lurasidone HCl [Latuda] 60 mg PO DAILY 03/23/19 [History] tiZANidine HCl [Zanaflex] 8 mg PO BID 03/23/19 [History] traZODone HCl [Trazodone HCl] 100 mg PO BEDTIME 03/23/19 [History] Acetaminophen/Codeine [Tylenol with Codeine No.3 300MG/30MG] 1 tab PO Q4H PRN #15 tab 01/17/20 [Rx] Past Medical History HEENT History: Reports: Other (See Below) Other HEENT History: dental carries Cardiovascular History: Reports: None Respiratory History: Reports: Asthma Other Respiratory History: "athletic asthma" Gastrointestinal History: Reports: Irritable Bowel Syndrome Genitourinary History: Reports: None 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 Musculoskeletal History: Reports: Arthritis, Fibromyalgia, Other (See Below) Other Musculoskeletal History: DEGENERATIVE BONE DISORDER bursitis Neurological History: Reports: Concussion Other Neuro History: cervical radiculopathy, cerviclagia Psychiatric History: Reports: ADD, Addiction, Anxiety, Depression, Learning Disability, PTSD Endocrine/Metabolic History: Reports: None Hematologic History: Reports: Anemia Immunologic History: Reports: None Oncologic (Cancer) History: Reports: Cervix Dermatologic History: Reports: None - Infectious Disease History Infectious Disease History: Reports: MRSA Other Infectious Disease History: pt cleared of MRSA 6 negatives - Past Surgical History Head Surgeries/Procedures: Reports: None Cardiovascular Surgical History: Reports: None Female Surgical History: Reports: D&C, Endometrial Ablation, LEEP, Tubal Ligation Other Female Surgeries/Procedures: BLADDER SURGERY, LEAP PROCEDURE Endocrine Surgical History: Reports: None Musculoskeletal Surgical History: Reports: Shoulder Surgery Other Musculoskeletal Surgeries/Procedures:: neck surgery 2018-fusion C5C6 Oncologic Surgical History: Reports: None Social & Family History - Family History Family Medical History: Noncontributory - Tobacco Use Smoking Status *Q: Current Every Day Smoker Years of Tobacco use: 34 Packs/Tins Daily: 1 - Caffeine Use Caffeine Use: Reports: Coffee, Energy Drinks, Soda, Tea - Recreational Drug Use Recreational Drug Use: No - Living Situation & Occupation Occupation: Unemployed ED ROS GENERAL - Review of Systems Review Of Systems: See Below Constitutional: Reports: No Symptoms HEENT: Reports: No Symptoms Respiratory: Reports: No Symptoms Cardiovascular: Reports: No Symptoms Endocrine: Reports: No Symptoms GI/Abdominal: Reports: No Symptoms : Reports: No Symptoms Musculoskeletal: Reports: Neck Pain Skin: Reports: No Symptoms Neurological: Reports: Headache. Denies: Dizziness, Paresthesia, Weakness Psychiatric: Reports: No Symptoms Hematologic/Lymphatic: Reports: No Symptoms Immunologic: Reports: No Symptoms ED EXAM, UPPER BACK/NECK PAIN - Physical Exam Exam: See Below General Appearance: Alert, WD/WN, No Apparent Distress Neck Exam: Normal Alignment, Normal Inspection, Paraspinous Muscle Tender (bilateral). No: Spinous Processes Tender, Tender Midline Cardiovascular/Respiratory: Regular Rate, Rhythm, No M/R/G, Normal Peripheral Pulses, No JVD, Normal Breath Sounds, No Respiratory Distress GI/Abdominal: Normal Bowel Sounds, Soft, Non-Tender, No Organomegaly, No Distention, No Abnormal Bruit, No Mass Back Exam: Normal Inspection, Full Range of Motion, NT Extremities: Normal Inspection, Normal Range of Motion, Non-Tender, No Pedal Edema, Normal Capillary Refill Neurologic: watermaster II-XII nml As Tested, No Motor/Sensory Deficits, Alert, Normal Mood/Affect, Oriented x 3 Psychiatric: Normal Affect, Normal Mood Skin Exam: Normal Color, Warm/Dry Course - Vital Signs Last Recorded V/S: Last Vital Signs Temp 98.0 F 01/17/20 13:41 Pulse 80 01/17/20 13:41 Resp 20 01/17/20 13:41 BP 136/88 01/17/20 13:41 Pulse Ox 98 01/17/20 13:41 - Orders/Labs/Meds Meds: Medications Discontinued Medications Generic Name Dose Route Start Last Admin Trade Name Freq PRN Reason Stop Dose Admin Ketorolac Tromethamine 60 mg 01/17/20 13:56 01/17/20 14:04 Toradol IM 01/17/20 13:57 60 mg ONETIME ONE Administration - Re-Assessments/Exams Free Text/Narrative Re-Assessment/Exam: c-spine xray was negative for any acute abnormalities. Hardware from fusion is appropriately positioned. I will discharge her home with a prescription for Tylenol #3 and instructions to f/u with primary care. Discharge instructions as documented. Departure - Departure Time of Disposition: 15:01 Disposition: Home, Self-Care 01 Condition: Good Clinical Impression: Neck pain - Discharge Information *PRESCRIPTION DRUG MONITORING PROGRAM REVIEWED*: No *COPY OF PRESCRIPTION DRUG MONITORING REPORT IN PATIENT RAHEL: No Prescriptions: Acetaminophen/Codeine [Tylenol with Codeine No.3 300MG/30MG] 1 tab PO Q4H PRN #15 tab PRN Reason: Pain Referrals: Laine Stovall PA-C [Primary Care Provider] - Forms: ED Department Discharge Additional Instructions: You were seen in the emergency department today for 2-month history of recurrent neck pain. While you are in the ER, an x-ray was completed of your neck and showed that the hardware from your previous fusion was correctly placed. He also received an injection of Toradol. A prescription for Tylenol with codeine has been sent to [facility]. Take this medication as prescribed. Do not drive or work for 12 hours after taking this medication as it can be sedating. Recommend that you follow-up with your primary care provider at her next available visit to discuss the possibility of MRI and/or referral to neurosurgery. Return to ER for any worsening symptoms of concern. Sepsis Event Note (ED) - Evaluation Sepsis Screening Result: No Definite Risk
--- NOTE | 2020-01-17 14:14 | CR ---
Cervical spine: AP, lateral and odontoid views of the cervical spine were obtained. Comparison: Prior cervical spine study of 07/13/18. Findings: Anterior fixation is noted at C5-6. Disk spacer is noted noted at C5-6. These findings are stable from previous study. Disc spaces otherwise are preserved. Minimal anterior osteophytes are noted at C6-7. Prevertebral soft tissues are normal. No subluxation or fracture is seen. Impression: 1. Stable findings of surgery at C5-6. 2. Minimal anterior osteophytes at C6-7. Diagnostic code #2 This report was dictated in [facility]T
== END 2020-01-17 15:20 | disposition home or self-care (01) ==
LOC: JD.ED 13:18
DX: M54.2 Cervicalgia (principal); J45.909 Unspecified asthma, uncomplicated; Z98.51 Tubal ligation status; F17.210 Nicotine dependence, cigarettes, uncomplicated; Z88.1 Allergy status to other antibiotic agents; Z88.2 Allergy status to sulfonamides; Z88.5 Allergy status to narcotic agent; Z88.8 Allergy status to other drugs, medicaments and biological substances; Z79.899 Other long term (current) drug therapy
CPT/HCPCS: 72040; 96372; 99283; J1885

== ENCOUNTER 2020-08-02 12:54 | Emergency (ER) | payer MEDICARE, MEDICAID ==
[2020-08-02 13:11] VITALS: BP 156/97; PULSE 88
--- NOTE | 2020-08-02 13:24 | EDM.PDOC ---
ED HPI GENERAL MEDICAL PROBLEM - General Chief Complaint: General Stated Complaint: POST SURGERY/REDNESS/SWELLING Time Seen by Provider: 08/02/20 13:03 Source of Information: Reports: Patient, RN Notes Reviewed History Limitations: Reports: No Limitations - History of Present Illness INITIAL COMMENTS - FREE TEXT/NARRATIVE: Patient is a 44-year-old female who presents to the ED for evaluation of redness and swelling post surgery. Patient states roughly 2 days ago she had a disc fusion of C4 and C5, and C6 and C6-[address] Daniels at [facility] in [place]. Patient notes that she just got discharged from the hospital yesterday, and was not sent home on oral antibiotics however they did have her on IV antibiotics while she was in the hospital. The patient has appreciated some increased redness and swelling just below the incision site, there is some tenderness on the incision site as well but she states that this does not seem to be more than normal. She is having no drainage from the incision site. The redness and swelling extends roughly 2 inches down past the incision site, and does seem to be a little bit more warm to the touch. She states that she had a fever last night she took a dose of Tylenol at around midnight to 1 AM. And the last dose of tramadol was roughly 3 to 4 hours ago. She states that the pain is bearable and does not seem to be increasing. - Related Data Allergies Allergy/AdvReac Type Severity Reaction Status Date / Time amoxicillin Allergy Hives Verified 08/02/20 13:11 Sulfa (Sulfonamide Allergy Rash Verified 08/02/20 13:11 Antibiotics) acetaminophen AdvReac Anxiety Verified 08/02/20 13:11 [From Lorcet (hydrocodone)] fexofenadine HCl AdvReac Anxiety Verified 08/02/20 13:11 [From Indira-D] hydrocodone bitartrate AdvReac Anxiety Verified 08/02/20 13:11 [From Lorcet (hydrocodone)] morphine AdvReac Anxiety Verified 08/02/20 13:11 oxycodone AdvReac Anxiety Verified 08/02/20 13:11 prochlorperazine edisylate AdvReac Anxiety Verified 08/02/20 13:11 [From Compazine] prochlorperazine maleate AdvReac Anxiety Verified 08/02/20 13:11 [From Compazine] propoxyphene napsylate AdvReac Anxiety Verified 08/02/20 13:11 [From Darvocet-N] pseudoephedrine HCl AdvReac Anxiety Verified 08/02/20 13:11 [From Indira-D] Home Meds: Home Meds Gabapentin [Neurontin] 1,200 mg PO TID 06/29/17 [History] hydrOXYzine HCL [hydrOXYzine] 50 mg PO TID 06/29/17 [History] tiZANidine [Zanaflex] 4 mg PO WITHLUNCH 06/29/17 [History] Ibuprofen 800 mg PO TID PRN 10/27/18 [History] Albuterol [Proventil HFA] 2 puff INH Q4H PRN 03/23/19 [History] Lurasidone HCl [Latuda] 60 mg PO DAILY 03/23/19 [History] tiZANidine HCl [Zanaflex] 8 mg PO BID 03/23/19 [History] traZODone HCl [Trazodone HCl] 100 mg PO BEDTIME 03/23/19 [History] Acetaminophen/Codeine [Tylenol with Codeine No.3 300MG/30MG] 1 tab PO Q4H PRN #15 tab 01/17/20 [Rx] Omeprazole 20 mg PO 01/28/20 [History] LORazepam [Ativan] 1 mg PO 02/09/20 [History] Omeprazole 20 mg PO 02/09/20 [History] Pramipexole Di-HCl [Pramipexole Dihydrochloride] 0.125 mg PO 02/09/20 [History] Cefdinir [Omnicef] 300 mg PO BID 7 Days #14 cap 08/02/20 [Rx] Past Medical History HEENT History: Reports: Other (See Below) Other HEENT History: dental carries Cardiovascular History: Reports: None Respiratory History: Reports: Asthma Other Respiratory History: "athletic asthma" Gastrointestinal History: Reports: Irritable Bowel Syndrome Genitourinary History: Reports: None CAGE MAKER History: Reports: Endometrial Ablation Musculoskeletal History: Reports: Arthritis, Fibromyalgia, Other (See Below) Other Musculoskeletal History: DEGENERATIVE BONE DISORDER bursitis Neurological History: Reports: Concussion Other Neuro History: cervical radiculopathy, cerviclagia Psychiatric History: Reports: ADD, Addiction, Anxiety, Depression, Learning Disability, PTSD Endocrine/Metabolic History: Reports: None Hematologic History: Reports: Anemia Immunologic History: Reports: None Oncologic (Cancer) History: Reports: Cervix Dermatologic History: Reports: None - Infectious Disease History Infectious Disease History: Reports: MRSA Other Infectious Disease History: pt cleared of MRSA 6 negatives - Past Surgical History Head Surgeries/Procedures: Reports: None HEENT Surgical History: Reports: Oral Surgery Cardiovascular Surgical History: Reports: None Respiratory Surgical History: Reports: None GI Surgical History: Reports: Appendectomy, Cholecystectomy Female Surgical History: Reports: D&C, Endometrial Ablation, LEEP, Tubal Ligation Other Female Surgeries/Procedures: BLADDER SURGERY, LEAP PROCEDURE Endocrine Surgical History: Reports: None Neurological Surgical History: Reports: None Musculoskeletal Surgical History: Reports: Shoulder Surgery Other Musculoskeletal Surgeries/Procedures:: neck surgery 2018-fusion C5C6 Oncologic Surgical History: Reports: None Social & Family History - Family History Family Medical History: No Pertinent Family History - Tobacco Use Tobacco Use Status *Q: Current Every Day Tobacco User Years of Tobacco use: 32 Packs/Tins Daily: 1 - Caffeine Use Caffeine Use: Reports: Coffee, Energy Drinks, Soda, Tea - Recreational Drug Use Recreational Drug Use: No - Living Situation & Occupation Occupation: Unemployed ED ROS GENERAL - Review of Systems Review Of Systems: Comprehensive ROS is negative, except as noted in HPI. ED EXAM, GENERAL - Physical Exam Exam: See Below Exam Limited By: No Limitations General Appearance: Alert, WD/WN, No Apparent Distress Neck: Normal Inspection (with healing surgical wound; no fluctuance noted, slight tenderness to just around the site, patient states that this does not seem to be worsening.) Respiratory/Chest: No Respiratory Distress, Lungs Clear, Normal Breath Sounds, No Accessory Muscle Use, Chest Non-Tender Cardiovascular: Normal Peripheral Pulses, Regular Rate, Rhythm, No Edema Neurological: Alert, Oriented, Normal Cognition, No Motor/Sensory Deficits Psychiatric: Normal Affect, Normal Mood Skin Exam: Warm, Dry, Intact, Erythema (with some swelling that does seem to extend about 2 inches below the incision site in a v shaped fashion), Increased Warmth (over the area of erythema) Course - Vital Signs Last Recorded V/S: Last Vital Signs Temp 97.3 F 08/02/20 13:07 Pulse 88 08/02/20 13:07 Resp 18 08/02/20 13:07 BP 156/97 H 08/02/20 13:07 Pulse Ox 95 08/02/20 13:07 - Re-Assessments/Exams Free Text/Narrative Re-Assessment/Exam: 08/02/20 13:24 Patient presents to the ED for the evaluation of her redness/swelling/warmth after her surgery. The area itself does feel slightly warm to the touch, it is not overly tender however, incision site seems to be healing well no fluctuance noted at the incision site. I will try to call Dr. Daniels to see if he has any special recommendations for possible antibiotic therapy however Dr. Alcantara thinks a cephalosporin like Omnicef might provide good coverage. She does have an amoxicillin and a sulfa allergy. 08/02/20 13:37 I was able to talk with Dr. Daniels's PA, Abad Mckeon and he thinks that omnicef will be just fine to try and have her follow up with them or her PCP next week. Patient is agreeable to this plan. Departure - Departure Time of Disposition: 13:37 Disposition: Home, Self-Care 01 Condition: Good Clinical Impression: Cellulitis of neck - Discharge Information *PRESCRIPTION DRUG MONITORING PROGRAM REVIEWED*: No *COPY OF PRESCRIPTION DRUG MONITORING REPORT IN PATIENT RAHEL: No Instructions: Cellulitis, Adult, [id number] Referrals: Laine Stovall PA-C [Primary Care Provider] - Forms: ED Department Discharge Additional Instructions: You were evaluated in the ER today regarding a suspected skin infection. It does appear that you have a cellulitis. You were given an antibiotic, Omnicef (cefdinir) please take as prescribed until the course is done or told otherwise by different provider. Please note that this antibiotic will take at least 48 hours to start working appropriately. You may try to use heat/ice packs to the area to help reduce pain/swelling. You may take 500 mg Tylenol or 600 mg ibuprofen every 6 hours as needed for further pain relief. Do not exceed 4000 mg Tylenol or 3200 mg ibuprofen in a 24-hour time span. Recommend you follow-up with your neurosurgeon's clinic, sometime next week via telemed appointment for follow-up with your primary care provider Farzaneh Stovall, so someone can reassess the area and make sure that it is indeed getting better and not spreading. Please return to the ER at any time if your symptoms change or worsen. Sepsis Event Note (ED) - Evaluation Sepsis Screening Result: No Definite Risk - Focused Exam Vital Signs: Vital Signs Temp Pulse Resp BP Pulse Ox 08/02/20 13:07 97.3 F 88 18 156/97 H 95
== END 2020-08-02 14:11 | disposition home or self-care (01) ==
LOC: JD.ED 12:54
DX: L03.221 Cellulitis of neck (principal); J45.909 Unspecified asthma, uncomplicated; Z88.1 Allergy status to other antibiotic agents; Z88.2 Allergy status to sulfonamides; Z88.6 Allergy status to analgesic agent; Z88.5 Allergy status to narcotic agent; Z88.8 Allergy status to other drugs, medicaments and biological substances; Z79.899 Other long term (current) drug therapy; Z72.0 Tobacco use
CPT/HCPCS: 99283

== ENCOUNTER 2020-08-05 10:45 | Emergency (ER) | payer MEDICARE, MEDICAID ==
[2020-08-05 10:57] VITALS: BP 150/98; PULSE 99
--- NOTE | 2020-08-05 11:40 | EDM.PDOC ---
ED HPI GENERAL MEDICAL PROBLEM - General Chief Complaint: Wound Recheck Stated Complaint: DRAINAGE FROM SURGICAL SITE Time Seen by Provider: 08/05/20 11:14 Source of Information: Reports: Patient History Limitations: Reports: No Limitations - History of Present Illness INITIAL COMMENTS - FREE TEXT/NARRATIVE: 44-year-old female presents for wound recheck after cervical fusion ap proximately [address] Maxime vigil in [place]. Patient states she was seen in the emergency department about 3 days ago for increased redness surrounding the surgical site. The patient was given a prescription for Omnicef. Patient states that there is no longer erythema present however this morning she noted a pinhole area on the right lateral side of the incision with him scant amount of purulent drainage. Patient is still taking her Omnicef and states she is just concerned as she was told to return with any changes. She denies any recent fever, chills, nausea, vomiting or diarrhea. Neck Pain Score (Numeric/FACES): 7 - Related Data Allergies Allergy/AdvReac Type Severity Reaction Status Date / Time amoxicillin Allergy Hives Verified 08/05/20 10:58 Sulfa (Sulfonamide Allergy Rash Verified 08/05/20 10:58 Antibiotics) acetaminophen AdvReac Anxiety Verified 08/05/20 10:58 [From Lorcet (hydrocodone)] fexofenadine HCl AdvReac Anxiety Verified 08/05/20 10:58 [From Indira-D] hydrocodone bitartrate AdvReac Anxiety Verified 08/05/20 10:58 [From Lorcet (hydrocodone)] morphine AdvReac Anxiety Verified 08/05/20 10:58 oxycodone AdvReac Anxiety Verified 08/05/20 10:58 prochlorperazine edisylate AdvReac Anxiety Verified 08/05/20 10:58 [From Compazine] prochlorperazine maleate AdvReac Anxiety Verified 08/05/20 10:58 [From Compazine] propoxyphene napsylate AdvReac Anxiety Verified 08/05/20 10:58 [From Darvocet-N] pseudoephedrine HCl AdvReac Anxiety Verified 08/05/20 10:58 [From Indira-D] Home Meds: Home Meds Gabapentin [Neurontin] 1,200 mg PO TID 06/29/17 [History] hydrOXYzine HCL [hydrOXYzine] 50 mg PO TID 06/29/17 [History] tiZANidine [Zanaflex] 4 mg PO WITHLUNCH 06/29/17 [History] Ibuprofen 800 mg PO TID PRN 10/27/18 [History] Albuterol [Proventil HFA] 2 puff INH Q4H PRN 03/23/19 [History] Lurasidone HCl [Latuda] 60 mg PO DAILY 03/23/19 [History] tiZANidine HCl [Zanaflex] 8 mg PO BID 03/23/19 [History] traZODone HCl [Trazodone HCl] 100 mg PO BEDTIME 03/23/19 [History] Acetaminophen/Codeine [Tylenol with Codeine No.3 300MG/30MG] 1 tab PO Q4H PRN #15 tab 01/17/20 [Rx] Omeprazole 20 mg PO 01/28/20 [History] LORazepam [Ativan] 1 mg PO 02/09/20 [History] Omeprazole 20 mg PO 02/09/20 [History] Pramipexole Di-HCl [Pramipexole Dihydrochloride] 0.125 mg PO 02/09/20 [History] Cefdinir [Omnicef] 300 mg PO BID 7 Days #14 cap 08/02/20 [Rx] Past Medical History HEENT History: Reports: Other (See Below) Other HEENT History: dental carries Cardiovascular History: Reports: None Respiratory History: Reports: Asthma Other Respiratory History: "athletic asthma" Gastrointestinal History: Reports: Irritable Bowel Syndrome Genitourinary History: Reports: None 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: Reports: Endometrial Ablation Musculoskeletal History: Reports: Arthritis, Fibromyalgia, Other (See Below) Other Musculoskeletal History: DEGENERATIVE BONE DISORDER bursitis Neurological History: Reports: Concussion Other Neuro History: cervical radiculopathy, cerviclagia Psychiatric History: Reports: ADD, Addiction, Anxiety, Depression, Learning Disability, PTSD Endocrine/Metabolic History: Reports: None Hematologic History: Reports: Anemia Immunologic History: Reports: None Oncologic (Cancer) History: Reports: Cervix Dermatologic History: Reports: None - Infectious Disease History Infectious Disease History: Reports: MRSA Other Infectious Disease History: pt cleared of MRSA 6 negatives - Past Surgical History Head Surgeries/Procedures: Reports: None HEENT Surgical History: Reports: Oral Surgery GI Surgical History: Reports: Appendectomy, Cholecystectomy Female Surgical History: Reports: D&C, Endometrial Ablation, LEEP, Tubal Ligation Other Female Surgeries/Procedures: BLADDER SURGERY, LEAP PROCEDURE Neurological Surgical History: Reports: None Musculoskeletal Surgical History: Reports: Shoulder Surgery Other Musculoskeletal Surgeries/Procedures:: neck surgery 2018-fusion C5C6, fusion of C4/C5 and C6/C7 Oncologic Surgical History: Reports: None Social & Family History - Family History Family Medical History: No Pertinent Family History - Tobacco Use Tobacco Use Status *Q: Current Every Day Tobacco User Years of Tobacco use: 35 Packs/Tins Daily: 1 - Caffeine Use Caffeine Use: Reports: Coffee, Soda - Recreational Drug Use Recreational Drug Use: No - Living Situation & Occupation Occupation: Unemployed ED ROS GENERAL - Review of Systems Review Of Systems: Comprehensive ROS is negative, except as noted in HPI. ED EXAM, SKIN/RASH Exam: See Below Exam Limited By: No Limitations General Appearance: Alert, WD/WN, No Apparent Distress Ears: Normal External Exam, Hearing Grossly Normal Nose: Normal Inspection Throat/Mouth: Normal Inspection, Normal Lips, Normal Voice, No Airway Compromise Head: Atraumatic, Normocephalic Neck: Normal Inspection, Supple, Non-Tender, Full Range of Motion, Other (Horizontal incision noted to the middle of anterior neck. There is no erythema or edema noted. Glue is still intact to incisional site.) Respiratory/Chest: No Respiratory Distress, No Accessory Muscle Use Cardiovascular: Normal Peripheral Pulses, No Edema GI/Abdominal: No Distention (Female) Exam: Deferred Rectal (Female) Exam: Deferred Back Exam: Normal Inspection, Full Range of Motion Extremities: Normal Inspection, Normal Range of Motion, Non-Tender, No Pedal Edema, Normal Capillary Refill Neurological: Alert, Oriented, Normal Cognition Psychiatric: Normal Affect, Normal Mood Skin: Warm, Dry, Intact, Normal Color, No Rash, Wound/Incision (Being dry and intact.) Location, Skin: Neck (Horizontal surgical incision site to the middle of the anterior neck. Surgical glue is still intact there is no erythema, edema or drainage noted.) Characteristics: Linear Associated features: No: Warmth, Tenderness, Swelling, Inflammation Lymphatic: No Adenopathy Course - Vital Signs Text/Narrative:: 44 year old female here for a wound recheck after a spinal fusion about 1 week ago. Patient was placed on Omnicef about 3 days ago for increased erythema and edema noted around surgical incision site and into her chest. Patient states t his has resolved however when she woke this morning there was a pinpoint area on the incision with a scant amount of purulent drainage noted. Upon assessment there is no erythema or edema noted. Wound edges were palpated and no drainage was noted. Patient denies any recent fever chills, nausea vomiting or diarrhea. She states she was just concerned as she was told to return to the ER with any changes. No further interventions are warranted at this time. Last Recorded V/S: Last Vital Signs Temp 97.6 F 08/05/20 10:52 Pulse 99 08/05/20 10:52 Resp 18 08/05/20 10:52 BP 150/98 H 08/05/20 10:52 Pulse Ox 97 08/05/20 10:52 Departure - Departure Time of Disposition: 11:38 Disposition: Home, Self-Care 01 Condition: Good Clinical Impression: S/P cervical spinal fusion - Discharge Information Instructions: How to Change Your Wound Dressing, [id number], Sutures, Dionne, or Adhesive Wound Closure, [id number] Referrals: Laine Stovall PA-C [Primary Care Provider] - Forms: ED Department Discharge Additional Instructions: You were seen in the emergency department today for recheck of your wound. You stated that there was some drainage noted this morning, however no drainage was appreciated at the time of reassessment. Wound appears to be healing well. You are on antibiotics and these should be taking full effect. Continue to take your antibiotic as prescribed. Should you notice your wound starts gaping or you have a large amount of pus, redness, or swelling you need to be reevaluated. Do not hesitate returning to the emergency department should your condition worsen or change. Sepsis Event Note (ED) - Evaluation Sepsis Screening Result: No Definite Risk - Focused Exam Vital Signs: Vital Signs Temp Pulse Resp BP Pulse Ox 08/05/20 10:52 97.6 F 99 18 150/98 H 97
== END 2020-08-05 11:47 | disposition home or self-care (01) ==
LOC: JD.ED 10:45
DX: Z47.89 Encounter for other orthopedic aftercare (principal); J45.909 Unspecified asthma, uncomplicated; Z88.0 Allergy status to penicillin; Z88.2 Allergy status to sulfonamides; Z88.6 Allergy status to analgesic agent; Z88.8 Allergy status to other drugs, medicaments and biological substances; Z88.5 Allergy status to narcotic agent; Z79.899 Other long term (current) drug therapy; Z72.0 Tobacco use
CPT/HCPCS: 99282

== ENCOUNTER 2020-11-26 13:40 | Emergency (ER) | payer MEDICARE, MEDICAID ==
--- NOTE | 2020-11-26 14:17 | EDM.PDOC ---
ED HPI GENERAL MEDICAL PROBLEM - General Chief Complaint: Behavioral/Psych Stated Complaint: SHAKEY,DIZZY,POSSIBLE PANIC ATTACK Time Seen by Provider: 11/26/20 14:16 - History of Present Illness INITIAL COMMENTS - FREE TEXT/NARRATIVE: 45-year-old female presents the emergency room with worsening anxiety. Patient states this is been getting worse over the last couple of weeks and really got bad at the end of this last week she had to put her dog down on Friday. The patient awoke quite anxious today with numbness in her arms and in her fingers. This is generally getting worse over time. The patient uses hydroxyzine 10 mg 1 twice daily and 2 at bedtime. Today she woke up quite anxious this attack is getting better but her anxiety over the last couple of weeks is getting worse she has had quite a bit of external stressors. Denies illicit drugs or alcohol. - Related Data Allergies Allergy/AdvReac Type Severity Reaction Status Date / Time amoxicillin Allergy Hives Verified 11/26/20 13:59 Sulfa (Sulfonamide Allergy Rash Verified 11/26/20 13:59 Antibiotics) acetaminophen AdvReac Liver Verified 11/26/20 14:00 [From Lorcet (hydrocodone)] Problems fexofenadine HCl AdvReac Anxiety Verified 11/26/20 13:59 [From Indira-D] hydrocodone bitartrate AdvReac Anxiety Verified 11/26/20 13:59 [From Lorcet (hydrocodone)] morphine AdvReac Anxiety Verified 11/26/20 13:59 oxycodone AdvReac Anxiety Verified 11/26/20 13:59 prochlorperazine edisylate AdvReac Anxiety Verified 11/26/20 13:59 [From Compazine] prochlorperazine maleate AdvReac Anxiety Verified 11/26/20 13:59 [From Compazine] propoxyphene napsylate AdvReac Anxiety Verified 11/26/20 13:59 [From Darvocet-N] pseudoephedrine HCl AdvReac Anxiety Verified 11/26/20 13:59 [From Indira-D] Home Meds: Home Meds Gabapentin [Neurontin] 1,200 mg PO TID 06/29/17 [History] hydrOXYzine HCL [hydrOXYzine] 50 mg PO TID 06/29/17 [History] tiZANidine [Zanaflex] 4 mg PO WITHLUNCH 06/29/17 [History] Ibuprofen 800 mg PO TID PRN 10/27/18 [History] Albuterol [Proventil HFA] 2 puff INH Q4H PRN 03/23/19 [History] Lurasidone HCl [Latuda] 60 mg PO DAILY 03/23/19 [History] tiZANidine HCl [Zanaflex] 8 mg PO BID 03/23/19 [History] traZODone HCl [Trazodone HCl] 100 mg PO BEDTIME 03/23/19 [History] Acetaminophen/Codeine [Tylenol with Codeine No.3 300MG/30MG] 1 tab PO Q4H PRN #15 tab 01/17/20 [Rx] Omeprazole 20 mg PO 01/28/20 [History] LORazepam [Ativan] 1 mg PO 02/09/20 [History] Omeprazole 20 mg PO 02/09/20 [History] Pramipexole Di-HCl [Pramipexole Dihydrochloride] 0.125 mg PO 02/09/20 [History] Cefdinir [Omnicef] 300 mg PO BID 7 Days #14 cap 08/02/20 [Rx] Past Medical History HEENT History: Reports: Other (See Below) Other HEENT History: dental carries Cardiovascular History: Reports: None Respiratory History: Reports: Asthma Other Respiratory History: "athletic asthma" Gastrointestinal History: Reports: Irritable Bowel Syndrome Genitourinary History: Reports: None 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 Musculoskeletal History: Reports: Arthritis, Fibromyalgia, Other (See Below) Other Musculoskeletal History: DEGENERATIVE BONE DISORDER bursitis Neurological History: Reports: Concussion Other Neuro History: cervical radiculopathy, cerviclagia Psychiatric History: Reports: ADD, Addiction, Anxiety, Depression, Learning Disability, PTSD Endocrine/Metabolic History: Reports: None Hematologic History: Reports: Anemia Immunologic History: Reports: None Oncologic (Cancer) History: Reports: Cervix Dermatologic History: Reports: None - Infectious Disease History Infectious Disease History: Reports: MRSA Other Infectious Disease History: pt cleared of MRSA 6 negatives - Past Surgical History Head Surgeries/Procedures: Reports: None HEENT Surgical History: Reports: Oral Surgery Cardiovascular Surgical History: Reports: None Respiratory Surgical History: Reports: None GI Surgical History: Reports: Appendectomy, Cholecystectomy Female Surgical History: Reports: D&C, Endometrial Ablation, LEEP, Tubal Liga tion Other Female Surgeries/Procedures: BLADDER SURGERY, LEAP PROCEDURE Endocrine Surgical History: Reports: None Neurological Surgical History: Reports: None Musculoskeletal Surgical History: Reports: Shoulder Surgery Other Musculoskeletal Surgeries/Procedures:: neck surgery 2018-fusion C5C6, fusion of C4/C5 and C6/C7 Oncologic Surgical History: Reports: None Social & Family History - Family History Family Medical History: No Pertinent Family History - Tobacco Use Tobacco Use Status *Q: Current Every Day Tobacco User Years of Tobacco use: 35 Packs/Tins Daily: 1 - Caffeine Use Caffeine Use: Reports: Coffee, Soda - Recreational Drug Use Recreational Drug Use: No - Living Situation & Occupation Occupation: Unemployed ED ROS GENERAL - Review of Systems Review Of Systems: See Below Constitutional: Denies: Fever, Chills HEENT: Reports: Vision Change (When she is much worse she states she has some tunnellike vision that lasts briefly then resolves) Cardiovascular: Reports: No Symptoms Endocrine: Reports: No Symptoms GI/Abdominal: Reports: No Symptoms : Reports: No Symptoms Musculoskeletal: Reports: No Symptoms Skin: Reports: No Symptoms Neurological: Reports: Dizziness Psychiatric: Reports: Anxiety. Denies: Homicidal Ideation, Suicidal Ideation Hematologic/Lymphatic: Reports: No Symptoms Immunologic: Reports: No Symptoms ED EXAM, GENERAL - Physical Exam Exam: See Below Exam Limited By: No Limitations General Appearance: Alert, Anxious (Minimally so) Eye Exam: Bilateral Eye: EOMI, Normal Inspection, PERRL Ears: Normal External Exam, Normal Canal, Hearing Grossly Normal, Normal TMs Nose: Normal Inspection, Normal Mucosa, No Blood Throat/Mouth: Normal Inspection, Normal Lips, Normal Gums, Normal Oropharynx, Normal Voice, No Airway Compromise Head: Atraumatic, Normocephalic Neck: Normal Inspection, Supple, Non-Tender. No: Lymphadenopathy (L), Lymphadenopathy (R) Respiratory/Chest: No Respiratory Distress, Lungs Clear, Normal Breath Sounds Cardiovascular: Normal Peripheral Pulses, Regular Rate, Rhythm, No Edema Course - Vital Signs Last Recorded V/S: Last Vital Signs Temp 36.0 C L 11/26/20 15:22 Pulse 66 11/26/20 15:22 Resp 12 11/26/20 15:22 BP 127/89 11/26/20 15:22 Pulse Ox 97 11/26/20 15:22 - Orders/Labs/Meds Meds: Medications Discontinued Medications Generic Name Dose Route Start Last Admin Trade Name Cheryl PRN Reason Stop Dose Admin Lorazepam 1 mg 11/26/20 14:25 11/26/20 14:34 Lorazepam 1 Mg Tab PO 11/26/20 14:26 1 mg ONETIME ONE Administration - Re-Assessments/Exams Free Text/Narrative Re-Assessment/Exam: 11/26/20 14:39 We will try her on Ativan and then see how she does 11/26/20 15:56 Patient is much better after a milligram of p.o. Ativan and she would like to go home and get some rest. Departure - Departure Time of Disposition: 15:57 Disposition: Home, Self-Care 01 Clinical Impression: Anxiety reaction - Discharge Information Referrals: Laine Stovall PA-C [Primary Care Provider] - Forms: ED Department Discharge Additional Instructions: Return to the emergency room with any questions problems or worsening symptoms. Follow-up with your physician that is treating your anxiety early this next week. Sepsis Event Note (ED) - Evaluation Sepsis Screening Result: No Definite Risk - Focused Exam Vital Signs: Vital Signs Temp Pulse Resp BP Pulse Ox 11/26/20 15:22 36.0 C L 66 12 127/89 97 11/26/20 13:50 36.2 C 80 10 L 142/97 H 100
[2020-11-26] MEDS ORDERED: LORazepam 1 MG Tab PO ONE (14:25)
[2020-11-26 16:13] VITALS: BP 130/86; PULSE 78
== END 2020-11-26 16:10 | disposition home or self-care (01) ==
LOC: JD.ED 13:40
DX: F41.1 Generalized anxiety disorder (principal); Z88.0 Allergy status to penicillin; Z88.2 Allergy status to sulfonamides; Z88.6 Allergy status to analgesic agent; Z88.5 Allergy status to narcotic agent; Z79.899 Other long term (current) drug therapy; Z72.0 Tobacco use
CPT/HCPCS: 99283; A9270

== ENCOUNTER 2021-03-10 15:50 | Emergency (ER) | payer MEDICARE, MEDICAID ==
[2021-03-10 16:02] VITALS: PULSE 76
--- NOTE | 2021-03-10 16:28 | EDM.PDOC ---
ED HPI GENERAL MEDICAL PROBLEM - General Chief Complaint: Genitourinary Problem Stated Complaint: GENITOURINARY ISSUE Time Seen by Provider: 03/10/21 16:06 Source of Information: Reports: Patient, RN Notes Reviewed History Limitations: Reports: No Limitations - History of Present Illness INITIAL COMMENTS - FREE TEXT/NARRATIVE: Patient is a 45-year-old female who presents to the ER for the evaluation of a genitourinary issue. States that she was shaving her vagina, when she felt something protruding out of her vagina. She states that she pushed it back up into the cavity however she states it keeps falling out. She is not really sure what this is. She has no history of prolapsed uterus or bladder. Does state that her mother has a history of a prolapsed bladder. States it feels slightly irritated but no actual pain. Patient denies any other sick-like symptoms, fever/chills, cough/shortness of breath, nausea/vomiting/diarrhea. - Related Data Allergies Allergy/AdvReac Type Severity Reaction Status Date / Time amoxicillin Allergy Hives Verified 03/10/21 16:02 Sulfa (Sulfonamide Allergy Rash Verified 03/10/21 16:02 Antibiotics) acetaminophen AdvReac Liver Verified 03/10/21 16:02 [From Lorcet (hydrocodone)] Problems fexofenadine HCl AdvReac Anxiety Verified 03/10/21 16:02 [From Indira-D] hydrocodone bitartrate AdvReac Anxiety Verified 03/10/21 16:02 [From Lorcet (hydrocodone)] morphine AdvReac Anxiety Verified 03/10/21 16:02 oxycodone AdvReac Anxiety Verified 03/10/21 16:02 prochlorperazine edisylate AdvReac Anxiety Verified 03/10/21 16:02 [From Compazine] prochlorperazine maleate AdvReac Anxiety Verified 03/10/21 16:02 [From Compazine] propoxyphene napsylate AdvReac Anxiety Verified 03/10/21 16:02 [From Darvocet-N] pseudoephedrine HCl AdvReac Anxiety Verified 03/10/21 16:02 [From Indira-D] Home Meds: Home Meds Gabapentin [Neurontin] 1,200 mg PO TID 06/29/17 [History] hydrOXYzine HCL [hydrOXYzine] 50 mg PO TID 06/29/17 [History] Ibuprofen 800 mg PO TID PRN 10/27/18 [History] Albuterol [Proventil HFA] 2 puff INH Q4H PRN 03/23/19 [History] traZODone HCl [Trazodone HCl] 100 mg PO BEDTIME 03/23/19 [History] Omeprazole 20 mg PO 01/28/20 [History] Pramipexole Di-HCl [Pramipexole Dihydrochloride] 0.125 mg PO 02/09/20 [History] Baclofen 10 mg PO TID 03/10/21 [History] traMADol [Ultram] 50 mg PO Q12H PRN 03/10/21 [History] Past Medical History HEENT History: Reports: Other (See Below) Other HEENT History: dental caries Respiratory History: Reports: Asthma (exercise induced) Gastrointestinal History: Reports: Irritable Bowel Syndrome 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: Endometrial 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 Musculoskeletal History: Reports: Arthritis, Fibromyalgia, Other (See Below) Other Musculoskeletal History: DEGENERATIVE BONE DISORDER bursitis Neurological History: Reports: Concussion Other Neuro History: cervical radiculopathy, cerviclagia Psychiatric History: Reports: ADD, Addiction, Anxiety, Depression, Learning Disability, PTSD Endocrine/Metabolic History: Reports: Obesity/BMI 30+ Hematologic History: Reports: Anemia Oncologic (Cancer) History: Reports: Cervix - Infectious Disease History Infectious Disease History: Reports: MRSA Other Infectious Disease History: pt cleared of MRSA 6 negatives - Past Surgical History HEENT Surgical History: Reports: Oral Surgery GI Surgical History: Reports: Appendectomy, Cholecystectomy Female Surgical History: Reports: D&C, Endometrial Ablation, LEEP, Tubal Ligation Other Female Surgeries/Procedures: BLADDER SURGERY, LEAP PROCEDURE Musculoskeletal Surgical History: Reports: Shoulder Surgery Other Musculoskeletal Surgeries/Procedures:: neck surgery 2018-fusion C5C6, fusion of C4/C5 and C6/C7 Social & Family History - Family History Family Medical History: No Pertinent Family History - Tobacco Use Tobacco Use Status *Q: Current Every Day Tobacco User Years of Tobacco use: 35 Packs/Tins Daily: 1 - Caffeine Use Caffeine Use: Reports: Coffee, Soda - Recreational Drug Use Recreational Drug Use: No - Living Situation & Occupation Occupation: Unemployed ED ROS GENERAL - Review of Systems Review Of Systems: Comprehensive ROS is negative, except as noted in HPI. ED EXAM, RENAL/ - Physical Exam Exam: See Below Exam Limited By: No Limitations General Appearance: Alert, WD/WN, No Apparent Distress Respiratory/Chest: No Respiratory Distress, Lungs Clear, Normal Breath Sounds, Chest Non-Tender Cardiovascular: Normal Peripheral Pulses, Regular Rate, Rhythm, No Edema (Female) Exam: Normal External Exam, Normal Bimanual Exam, Other (As the p atient does bear down on exam, there does appear to be a cystocele present. This seems to be very low-grade, and is reducible at this time.) Extremities: Normal Inspection, Normal Capillary Refill Neurological: Alert, Oriented, Normal Cognition, No Motor/Sensory Deficits Psychiatric: Normal Affect, Normal Mood Skin Exam: Warm, Dry, Intact, Normal Color, No Rash Course - Vital Signs Last Recorded V/S: Last Vital Signs Temp 97 F 03/10/21 15:55 Pulse 76 03/10/21 15:55 Resp 16 03/10/21 15:55 BP 146/89 H 03/10/21 16:15 Pulse Ox 99 03/10/21 15:55 - Re-Assessments/Exams Free Text/Narrative Re-Assessment/Exam: 03/10/21 16:49 Patient presents to the ER for her genitourinary issue, she has what appears to be a cystocele, it also appears low-grade. I did tell her unfortunate there is no emergency at today's visit and there is nothing that we would be able to do for management of this and will have her follow-up with RESPIRATORY THERAPY MANAGER next week for ongoing management. Patient verbalized understanding. Departure - Departure Time of Disposition: 16:25 Disposition: Home, Self-Care 01 Condition: Good Clinical Impression: Prolapse of bladder - Discharge Information *PRESCRIPTION DRUG MONITORING PROGRAM REVIEWED*: No *COPY OF PRESCRIPTION DRUG MONITORING REPORT IN PATIENT RAHEL: No Referrals: Laine Stovall PA-C [Primary Care Provider] - Forms: ED Department Discharge Additional Instructions: You were evaluated in the ER today for a prolapse of your genitourinary system. On exam it does appear as if this is a bladder prolapse versus a uterine prolapse. As long as this reducible and not irritated, this is not not an emergency that we can do anything with at today's visit. You can try some Kegel exercises over the next few days to try to help strengthen the pelvic floor muscles, please try to avoid any sort of bearing down type activities like squatting, pushing real hard to have a bowel movement, etc. Recommend you follow-up with RESPIRATORY THERAPY MANAGER sometime this week for ongoing management so they can go over your options with you. Do not hesitate to return to the ER at any time if symptoms change or worsen. Thank you for allowing and choosing us to be involved in your healthcare needs. Sepsis Event Note (ED) - Evaluation Sepsis Screening Result: No Definite Risk - Focused Exam Vital Signs: Vital Signs Temp Pulse Resp BP Pulse Ox 03/10/21 16:15 146/89 H 03/10/21 15:55 97 F 76 16 99
[2021-03-10 16:31] VITALS: BP 146/89
== END 2021-03-10 16:37 | disposition home or self-care (01) ==
LOC: JD.ED 15:50
DX: N81.10 Cystocele, unspecified (principal); J45.909 Unspecified asthma, uncomplicated; E66.9 Obesity, unspecified; Z68.30 Body mass index [BMI] 30.0-30.9, adult; Z72.0 Tobacco use; Z88.0 Allergy status to penicillin; Z88.2 Allergy status to sulfonamides; Z88.6 Allergy status to analgesic agent; Z88.8 Allergy status to other drugs, medicaments and biological substances; Z88.5 Allergy status to narcotic agent; Z79.899 Other long term (current) drug therapy
CPT/HCPCS: 99283

== ENCOUNTER 2021-08-07 15:26 | Emergency (ER) | payer MEDICARE, MEDICAID ==
[2021-08-07] MEDS ORDERED: Ondansetron 4 MG/2 ML SDV IVPUSH ONE (16:17)
[2021-08-07] MEDS ORDERED: Sodium Chloride 0.9% 1,000 ML IV STA (16:17)
[2021-08-07] MEDS ORDERED: HYDROmorphone 1 MG/ML Syringe IVPUSH ONE (16:19)
[2021-08-07] MEDS: Sodium Chloride 0.9% 10 ML Syringe FLUSH PRN ×2 (16:27→17:09)
[2021-08-07] MEDS ORDERED: LORazepam 2 MG/ML SDV IVPUSH ONE (16:27)
[2021-08-07] MEDS ORDERED: Sodium Chloride 0.9% 10 ML Syringe FLUSH ONE (16:38)
[2021-08-07] MEDS ORDERED: Iopamidol 612 MG/ML 100 ML Bottle IVPUSH ONE (16:38)
[2021-08-07] MEDS ORDERED: Sodium Chloride 0.9% 100 ML IV SCH (16:45)
[2021-08-07 19:03] VITALS: BP 120/85; PULSE 87
== END 2021-08-07 19:03 | disposition home or self-care (01) ==
LOC: JD.ED 15:26
DX: K52.9 Noninfective gastroenteritis and colitis, unspecified (principal); F17.210 Nicotine dependence, cigarettes, uncomplicated; F41.9 Anxiety disorder, unspecified; F32.A Depression, unspecified; Z79.899 Other long term (current) drug therapy; Z88.8 Allergy status to other drugs, medicaments and biological substances; Z91.040 Latex allergy status; Z88.5 Allergy status to narcotic agent; Z88.2 Allergy status to sulfonamides; Z88.6 Allergy status to analgesic agent
CPT/HCPCS: 36415; 74177; 80053; 83690; 85025; 96374; 96375; 99284; J1170; J2060; J2405; J3490; J7030; Q9967; 99285

== ENCOUNTER → 2022-09-12 | Day surgery (SDC) | payer MEDICARE, MEDICAID ==
[~2022-09-12] MED LIST: Lactated Ringers 1,000 ML IV SCH; Lidocaine 1% 2 ML ONE; Lidocaine 1%/Sod Bicarbonate in NS 8.4% 1 ML Syringe IDERM PRN; Midazolam 1 MG/ML 2 ML SDV ONE; Propofol 200 MG/20 ML SDV ONE; Sodium Chloride 0.9% 10 ML Syringe FLUSH PRN; Sodium Chloride 0.9% 10 ML Syringe FLUSH SCH; fentaNYL 100 MCG/2 ML SDV ONE
[2022-09-12 12:18] VITALS: BP 122/71; PULSE 65
== END | disposition home or self-care (01) ==
LOC: JD.SDS 10:13
PROVIDERS: ATTEND Surgery
DX: K29.70 Gastritis, unspecified, without bleeding (principal); R13.10 Dysphagia, unspecified; K62.5 Hemorrhage of anus and rectum; K52.9 Noninfective gastroenteritis and colitis, unspecified; K21.9 Gastro-esophageal reflux disease without esophagitis; M19.90 Unspecified osteoarthritis, unspecified site; F41.9 Anxiety disorder, unspecified; J45.909 Unspecified asthma, uncomplicated; F43.10 Post-traumatic stress disorder, unspecified; G89.29 Other chronic pain; M54.9 Dorsalgia, unspecified; M54.2 Cervicalgia; G25.81 Restless legs syndrome; F17.210 Nicotine dependence, cigarettes, uncomplicated; Z88.0 Allergy status to penicillin; Z88.5 Allergy status to narcotic agent; Z88.8 Allergy status to other drugs, medicaments and biological substances; Z88.2 Allergy status to sulfonamides; Z79.899 Other long term (current) drug therapy; Z91.040 Latex allergy status
CPT/HCPCS: 43239; 45378; J2250; J2704; J3010; J7120; 00813; J3490

== ENCOUNTER 2022-10-01 08:55 | Day surgery (SDC) | payer MEDICARE, MEDICAID ==
[~2022-10-01 08:55] MED LIST changes: -Lidocaine 1% 2 ML ONE; -Midazolam 1 MG/ML 2 ML SDV ONE; -Propofol 200 MG/20 ML SDV ONE; -fentaNYL 100 MCG/2 ML SDV ONE
[2022-10-01] MEDS ORDERED: Midazolam 1 MG/ML 2 ML SDV IVPUSH PRN (09:24)
[2022-10-01] MEDS ORDERED: Bupivacaine 0.25%/EPINEPHrine 1:200,000 30 ML SDV ONE ×2 (11:01→13:18)
[2022-10-01] MEDS ORDERED: Bupivacaine 0.5% 30 ML SDV ONE (11:03)
[2022-10-01] MEDS ORDERED: Rocuronium 50 MG/5 ML Vial ONE ×2 (12:13→13:15)
[2022-10-01] MEDS ORDERED: Lidocaine 1% 5 ML VIAL ONE (12:13)
[2022-10-01] MEDS ORDERED: Propofol 200 MG/20 ML SDV ONE ×2 (12:13→14:40)
[2022-10-01] MEDS ORDERED: fentaNYL 250 MCG/5 ML SDV ONE (12:13)
[2022-10-01] MEDS ORDERED: ceFAZolin 2 GM Vial ONE (12:30)
[2022-10-01] MEDS ORDERED: Ondansetron 4 MG/2 ML SDV ONE (12:41)
[2022-10-01] MEDS ORDERED: Ketorolac 30 MG/ML SDV ONE (12:41)
[2022-10-01] MEDS ORDERED: Dexamethasone 4 MG/ML 5 ML MDV ONE (12:41)
[2022-10-01] MEDS ORDERED: ePHEDrine 50 MG/ML SDV ONE (12:54)
[2022-10-01] MEDS ORDERED: Lactated Ringers 1,000 ML IV ONE (13:00)
[2022-10-01] MEDS ORDERED: HYDROmorphone 0.5 MG/0.5 ML Syringe IVPUSH PRN (13:06)
[2022-10-01] MEDS ORDERED: fentaNYL 100 MCG/2 ML SDV IVPUSH PRN (13:06)
[2022-10-01] MEDS: Sugammadex Sodium 200 MG/2 ML VIAL ONE ×2 (14:22→15:14)
[2022-10-01] MEDS ORDERED: fentaNYL 100 MCG/2 ML SDV ONE (14:57)
[2022-10-01 17:24] VITALS: BP 108/66; PULSE 91
== END 2022-10-01 17:15 | disposition home or self-care (01) ==
LOC: JD.SDS 08:55
PROVIDERS: ATTEND Obstetrics & Gynecology
DX: N80.03 Adenomyosis of the uterus (principal); N72 Inflammatory disease of cervix uteri; N83.8 Other noninflammatory disorders of ovary, fallopian tube and broad ligament; N88.0 Leukoplakia of cervix uteri; N87.9 Dysplasia of cervix uteri, unspecified; N81.4 Uterovaginal prolapse, unspecified; N39.3 Stress incontinence (female) (male); F41.9 Anxiety disorder, unspecified; F32.A Depression, unspecified; K21.9 Gastro-esophageal reflux disease without esophagitis; M79.7 Fibromyalgia; F43.10 Post-traumatic stress disorder, unspecified; J45.909 Unspecified asthma, uncomplicated; F17.210 Nicotine dependence, cigarettes, uncomplicated; Z90.79 Acquired absence of other genital organ(s); Z88.5 Allergy status to narcotic agent; Z88.0 Allergy status to penicillin; Z88.8 Allergy status to other drugs, medicaments and biological substances; Z88.2 Allergy status to sulfonamides; Z79.899 Other long term (current) drug therapy
CPT/HCPCS: 57260; 57288; 58552; C1771; J0690; J1100; J1885; J2250; J2405; J2704; J3010; J3490; J7120; 00944

== ENCOUNTER 2023-03-30 12:46 | Emergency (ER) | payer MEDICARE, MEDICAID ==
[2023-03-30] MEDS ORDERED: Magnesium Citrate Solution 296 ML Bottle PO ONE (15:04)
[2023-03-30 19:17] VITALS: BP 107/87; PULSE 66
== END 2023-03-30 15:20 | disposition home or self-care (01) ==
LOC: JD.ED 12:46
DX: K59.00 Constipation, unspecified (principal); E66.9 Obesity, unspecified; J45.909 Unspecified asthma, uncomplicated; Z90.49 Acquired absence of other specified parts of digestive tract; Z68.32 Body mass index [BMI] 32.0-32.9, adult; Z88.8 Allergy status to other drugs, medicaments and biological substances; Z88.5 Allergy status to narcotic agent; Z88.1 Allergy status to other antibiotic agents; Z88.0 Allergy status to penicillin; Z91.040 Latex allergy status; Z88.2 Allergy status to sulfonamides; Z91.048 Other nonmedicinal substance allergy status
CPT/HCPCS: 74018; 99284; A9270

== ENCOUNTER 2023-04-08 13:24 | Emergency (ER) | payer MEDICARE, MEDICAID ==
[2023-04-08] MEDS ORDERED: hydrOXYzine HCl 50 MG Tab PO STA (14:10)
[2023-04-08 14:42] LABS: BASOPHILS ABSOLUTE AUTO 0.1 K/mm3 (0.0-0.2); BASOPHILS PERCENT AUTO 0.3 % (0.0-1.0); EOSINOPHILS ABSOLUTE AUTO 0.2 K/mm3 (0.0-0.4); EOSINOPHILS PERCENT AUTO 1.3 % (0.0-6.0); HEMATOCRIT 45.4 % (37.0-47.0); HEMOGLOBIN 15.9 gm/dl (12.0-16.0); IMMATURE GRAN ABSOLUTE AUTO 0.06 K/mm3 (0.00-0.05); IMMATURE GRAN PERCENT AUTO 0.3 % (0.0-0.4); LYMPHOCYTES ABSOLUTE AUTO 0.9 K/mm3 (1.0-4.8); LYMPHOCYTES PERCENT AUTO 5.1 % (24.0-44.0); MEAN CORPUSCULAR HEMOGLOBIN 32.9 pg (28.0-32.0); MEAN CORPUSCULAR VOLUME 93.8 fl (83.0-99.0); MEAN PLATELET VOLUME 10.4 fl (9.4-12.3); MONOCYTES ABSOLUTE AUTO 0.6 K/mm3 (0.0-0.8); MONOCYTES PERCENT AUTO 3.5 % (0.0-8.0); NEUTROPHILS ABSOLUTE AUTO 15.6 K/mm3 (1.8-7.7); NEUTROPHILS PERCENT AUTO 89.5 % (41.0-71.0); PLATELET COUNT,PLT 303 K/mm3 (150-400); RED BLOOD CELL COUNT 4.84 M/mm3 (4.10-5.30); WHITE BLOOD CELL COUNT,WBC 17.46 K/mm3 (3.9-11.3)
[2023-04-08 15:06] LABS: A/G RATIO 0.9 (1-2); ALBUMIN 3.5 g/dl (3.4-5.0); ANION GAP 12.8 (5-15); BILIRUBIN TOTAL 0.6 mg/dL (0.2-1.0); BUN/CREATININE RATIO 7.3 (14-18); CALCIUM 9.1 mg/dL (8.5-10.1); CREATININE 1.1 mg/dL (0.55-1.02); EST CRCL DRUG DOSING (CG) 57.91 mL/min; POTASSIUM,K 3.8 mEq/L (3.5-5.1); PROTEIN TOTAL,TP 7.6 g/dl (6.4-8.2)
[2023-04-08 15:22] LABS: CORONAVIRUS COVID-19 NAA NEGATIVE (NEGATIVE); INFLUENZA A NAA NEGATIVE (NEGATIVE)
[2023-04-08] MEDS ORDERED: cefTRIAXone 1 GM Vial IM ONE (15:44)
[2023-04-08] MEDS ORDERED: cefTRIAXone 1 GM, Lidocaine 1% 2.1 ML IM ONE ×2 (16:00)
[2023-04-08 16:06] VITALS: BP 125/80; PULSE 98
== END 2023-04-08 16:17 | disposition home or self-care (01) ==
LOC: JD.ED 13:24
DX: N30.00 Acute cystitis without hematuria (principal); D72.825 Bandemia; E66.9 Obesity, unspecified; F17.210 Nicotine dependence, cigarettes, uncomplicated; Z68.32 Body mass index [BMI] 32.0-32.9, adult; Z88.0 Allergy status to penicillin; Z88.2 Allergy status to sulfonamides; Z88.5 Allergy status to narcotic agent; Z91.040 Latex allergy status; Z88.8 Allergy status to other drugs, medicaments and biological substances; Z86.16 Personal history of COVID-19; Z90.49 Acquired absence of other specified parts of digestive tract; Z90.710 Acquired absence of both cervix and uterus; Z79.899 Other long term (current) drug therapy; Z20.822 Contact with and (suspected) exposure to COVID-19
CPT/HCPCS: 0240U; 36415; 80053; 85025; 96372; 99283; A9270; J0696; J3490

== ENCOUNTER 2023-06-22 13:26 | Emergency (ER) | payer MEDICARE, MEDICAID ==
[2023-06-22 15:34] LABS: INFLUENZA A NAA NEGATIVE (NEGATIVE)
[2023-06-22 16:42] LABS: STREP A BY PCR NOT DETECTED (NOT DETECT)
[2023-06-22 17:15] VITALS: BP 135/71; PULSE 73
== END 2023-06-22 17:15 | disposition home or self-care (01) ==
LOC: JD.ED 13:26
DX: J10.1 Influenza due to other identified influenza virus with other respiratory manifestations (principal); H66.002 Acute suppurative otitis media without spontaneous rupture of ear drum, left ear; B34.9 Viral infection, unspecified; J45.909 Unspecified asthma, uncomplicated; E66.9 Obesity, unspecified; F17.210 Nicotine dependence, cigarettes, uncomplicated; Z91.040 Latex allergy status; Z88.6 Allergy status to analgesic agent; Z88.5 Allergy status to narcotic agent; Z88.2 Allergy status to sulfonamides; Z88.1 Allergy status to other antibiotic agents; Z88.8 Allergy status to other drugs, medicaments and biological substances; Z86.16 Personal history of COVID-19; Z79.51 Long term (current) use of inhaled steroids; Z79.899 Other long term (current) drug therapy; Z68.32 Body mass index [BMI] 32.0-32.9, adult
CPT/HCPCS: 71045; 71045-26; 87502-QW; 87651-QW; 99285

== ENCOUNTER 2023-06-29 13:40 | Emergency (ER) | payer MEDICARE, MEDICAID ==
[2023-06-29 13:57] LABS: BASOPHILS ABSOLUTE AUTO 0.1 K/mm3 (0.0-0.2); EOSINOPHILS ABSOLUTE AUTO 0.4 K/mm3 (0.0-0.4); EOSINOPHILS PERCENT AUTO 3.4 % (0.0-6.0); HEMATOCRIT 43.2 % (37.0-47.0); HEMOGLOBIN 15.4 gm/dl (12.0-16.0); IMMATURE GRAN ABSOLUTE AUTO 0.02 K/mm3 (0.00-0.05); IMMATURE GRAN PERCENT AUTO 0.2 % (0.0-0.4); LYMPHOCYTES ABSOLUTE AUTO 4.8 K/mm3 (1.0-4.8); LYMPHOCYTES PERCENT AUTO 43.6 % (24.0-44.0); MEAN CORPUSCULAR HEMOGLOBIN 32.9 pg (28.0-32.0); MEAN CORPUSCULAR HGB CONC 35.6 g/dl (32.0-36.0); MEAN CORPUSCULAR VOLUME 92.3 fl (83.0-99.0); MEAN PLATELET VOLUME 10.7 fl (9.4-12.3); MONOCYTES ABSOLUTE AUTO 0.9 K/mm3 (0.0-0.8); MONOCYTES PERCENT AUTO 8.4 % (0.0-8.0); NEUTROPHILS ABSOLUTE AUTO 4.8 K/mm3 (1.8-7.7); NEUTROPHILS PERCENT AUTO 43.4 % (41.0-71.0); PLATELET COUNT,PLT 356 K/mm3 (150-400); RED BLOOD CELL COUNT 4.68 M/mm3 (4.10-5.30); WHITE BLOOD CELL COUNT,WBC 11.01 K/mm3 (3.9-11.3)
[2023-06-29 14:18] LABS: INR 1.01; PROTHROMBIN TIME 10.8 SECONDS (9.7-12.0)
[2023-06-29 14:19] LABS: PTT,PARTIAL THROMBOPLSTIN TIME 27.1 SECONDS (21.7-31.4)
[2023-06-29 14:22] LABS: D-DIMER QUANTITATIVE 0.52 mg/L (0.19-0.50)
[2023-06-29 14:29] LABS: A/G RATIO 0.8 (1-2); ALBUMIN 3.8 g/dl (3.4-5.0); ANION GAP 13.4 (5-15); BILIRUBIN TOTAL 0.5 mg/dL (0.2-1.0); BUN/CREATININE RATIO 13.3 (14-18); CALCIUM 8.9 mg/dL (8.5-10.1); CREATININE 0.9 mg/dL (0.55-1.02); EST CRCL DRUG DOSING (CG) 70.78 mL/min; POTASSIUM,K 3.4 mEq/L (3.5-5.1); PROTEIN TOTAL,TP 8.3 g/dl (6.4-8.2)
[2023-06-29] MEDS: Iopamidol 755 Mg/ML 100 ML Bottle IVPUSH ONE (15:50)
[2023-06-29] MEDS: Sodium Chloride 0.9% 100 ML IV SCH (15:50)
[2023-06-29] MEDS: Carboxymethylcellulose Sodium 1% Ophth Gel 15 ML Bottle EYERT ONE (16:29)
[2023-06-29] MEDS: predniSONE 20 MG Tab PO ONE (16:29)
[2023-06-29] MEDS: Lactated Ringers 1,000 ML IV SCH (16:41)
[2023-06-29] MEDS ORDERED: Potassium Chloride 10 MEQ Tab.ER PO ONE (17:02)
[2023-06-29 19:17] VITALS: BP 143/98; PULSE 63
== END 2023-06-29 17:20 | disposition home or self-care (01) ==
LOC: JD.ED 13:40
DX: G51.0 Bell's palsy (principal); E66.9 Obesity, unspecified; Z88.0 Allergy status to penicillin; Z88.2 Allergy status to sulfonamides; Z91.040 Latex allergy status; Z88.8 Allergy status to other drugs, medicaments and biological substances; Z79.899 Other long term (current) drug therapy; Z86.16 Personal history of COVID-19; Z90.49 Acquired absence of other specified parts of digestive tract; Z90.710 Acquired absence of both cervix and uterus; Z68.32 Body mass index [BMI] 32.0-32.9, adult
CPT/HCPCS: 36415; 70450; 71275; 80053; 82947; 84484; 84702; 85025; 85379; 85610; 85730; 93005; 99284; A9270; J3490; J7120; J7512; Q9967

== ENCOUNTER 2023-07-01 11:47 | Emergency (ER) | payer MEDICARE, MEDICAID ==
[2023-07-01] MEDS ORDERED: Sodium Chloride 0.9% 10 ML Syringe FLUSH PRN (11:55)
[2023-07-01] MEDS ORDERED: Sodium Chloride 0.9% 100 ML IV SCH (12:00)
[2023-07-01] MEDS: Iopamidol 755 Mg/ML 100 ML Bottle IVPUSH ONE (12:02)
[2023-07-01] MEDS ORDERED: predniSONE 10 MG Tab PO ONE (12:05)
[2023-07-01 12:16] LABS: BASOPHILS ABSOLUTE AUTO 0.1 K/mm3 (0.0-0.2); BASOPHILS PERCENT AUTO 0.6 % (0.0-1.0); EOSINOPHILS ABSOLUTE AUTO 0.2 K/mm3 (0.0-0.4); EOSINOPHILS PERCENT AUTO 1.1 % (0.0-6.0); HEMATOCRIT 45.6 % (37.0-47.0); IMMATURE GRAN PERCENT AUTO 0.6 % (0.0-0.4); LYMPHOCYTES ABSOLUTE AUTO 7.6 K/mm3 (1.0-4.8); LYMPHOCYTES PERCENT AUTO 42.5 % (24.0-44.0); MEAN CORPUSCULAR HEMOGLOBIN 32.6 pg (28.0-32.0); MEAN CORPUSCULAR HGB CONC 35.1 g/dl (32.0-36.0); MEAN CORPUSCULAR VOLUME 92.9 fl (83.0-99.0); MEAN PLATELET VOLUME 11.2 fl (9.4-12.3); MONOCYTES PERCENT AUTO 5.6 % (0.0-8.0); NEUTROPHILS ABSOLUTE AUTO 8.9 K/mm3 (1.8-7.7); NEUTROPHILS PERCENT AUTO 49.6 % (41.0-71.0); PLATELET COUNT,PLT 367 K/mm3 (150-400); RED BLOOD CELL COUNT 4.91 M/mm3 (4.10-5.30); WHITE BLOOD CELL COUNT,WBC 17.96 K/mm3 (3.9-11.3)
[2023-07-01 12:42] LABS: SLIDE REVIEW ABNORMAL SMEAR
[2023-07-01 12:52] LABS: INR 1.02; PROTHROMBIN TIME 10.9 SECONDS (9.7-12.0)
[2023-07-01 12:54] LABS: PTT,PARTIAL THROMBOPLSTIN TIME 24.7 SECONDS (21.7-31.4)
[2023-07-01 13:02] LABS: A/G RATIO 0.9 (1-2); ALANINE AMINOTRANSFERASE,ALT 30 U/L (14-59); ALBUMIN 3.5 g/dl (3.4-5.0); ALKALINE PHOSPHATASE 93 U/L (46-116); ASPARTATE AMNIOTRANSFERASE,AST 12 U/L (15-37); BILIRUBIN TOTAL 0.2 mg/dL (0.2-1.0); BLOOD UREA NITROGEN,BUN 14 mg/dL (7-18); CALCIUM 8.5 mg/dL (8.5-10.1); CARBON DIOXIDE,CO2 27 mEq/L (21-32); CHLORIDE,CL 104 mEq/L (98-107); ESTIMATED GFR 69 mL/min (>60); GLUCOSE RANDOM 117 mg/dL (70-99); MAGNESIUM 1.8 mg/dL (1.8-2.4); PROTEIN TOTAL,TP 7.6 g/dl (6.4-8.2); SODIUM,NA 140 mEq/L (136-145)
[2023-07-01] MEDS: valACYclovir 500 MG Tab PO ONE (13:55)
[2023-07-01] MEDS: predniSONE 20 MG Tab PO ONE (14:13)
[2023-07-01] MEDS: predniSONE 20 MG Tab PO STA (14:46)
[2023-07-01 14:48] VITALS: BP 113/86; PULSE 75
== END 2023-07-01 14:55 | disposition home or self-care (01) ==
LOC: JD.ED 11:47
DX: G51.0 Bell's palsy (principal); J45.909 Unspecified asthma, uncomplicated; E66.9 Obesity, unspecified; Z86.16 Personal history of COVID-19; Z79.899 Other long term (current) drug therapy; Z91.040 Latex allergy status; Z88.2 Allergy status to sulfonamides; Z88.0 Allergy status to penicillin; Z88.6 Allergy status to analgesic agent; Z88.8 Allergy status to other drugs, medicaments and biological substances; Z88.5 Allergy status to narcotic agent
CPT/HCPCS: 36415; 70450; 70496; 70498; 80053; 82947; 83735; 85025; 85610; 85730; 99285; A9270; J7512; Q9967

== ENCOUNTER 2023-12-27 16:25 | Emergency (ER) | payer MEDICARE, MEDICAID ==
[2023-12-27 17:36] LABS: BASOPHILS ABSOLUTE AUTO 0.1 K/mm3 (0.0-0.2); BASOPHILS PERCENT AUTO 0.7 % (0.0-1.0); EOSINOPHILS ABSOLUTE AUTO 0.7 K/mm3 (0.0-0.4); EOSINOPHILS PERCENT AUTO 9.5 % (0.0-6.0); HEMATOCRIT 39.4 % (37.0-47.0); HEMOGLOBIN 13.6 gm/dl (12.0-16.0); IMMATURE GRAN ABSOLUTE AUTO 0.02 K/mm3 (0.00-0.05); IMMATURE GRAN PERCENT AUTO 0.3 % (0.0-0.4); LYMPHOCYTES PERCENT AUTO 41.3 % (24.0-44.0); MEAN CORPUSCULAR HGB CONC 34.5 g/dl (32.0-36.0); MEAN CORPUSCULAR VOLUME 92.7 fl (83.0-99.0); MEAN PLATELET VOLUME 10.7 fl (9.4-12.3); MONOCYTES ABSOLUTE AUTO 0.8 K/mm3 (0.0-0.8); MONOCYTES PERCENT AUTO 10.9 % (0.0-8.0); NEUTROPHILS ABSOLUTE AUTO 2.7 K/mm3 (1.8-7.7); NEUTROPHILS PERCENT AUTO 37.3 % (41.0-71.0); PLATELET COUNT,PLT 239 K/mm3 (150-400); RED BLOOD CELL COUNT 4.25 M/mm3 (4.10-5.30); WHITE BLOOD CELL COUNT,WBC 7.14 K/mm3 (3.9-11.3)
[2023-12-27] MEDS: Lidocaine 2% Viscous Solution 15 ML UD PO ONE (17:37)
[2023-12-27 17:56] LABS: ANION GAP 14.1 (5-15); BUN/CREATININE RATIO 11.1 (14-18); CALCIUM 8.7 mg/dL (8.5-10.1); CREATININE 0.9 mg/dL (0.55-1.02); EST CRCL DRUG DOSING (CG) 70.01 mL/min; MAGNESIUM 1.8 mg/dL (1.8-2.4); POTASSIUM,K 4.1 mEq/L (3.5-5.1)
[2023-12-27 18:45] LABS: A/G RATIO 0.9 (1-2); ALBUMIN 3.3 g/dl (3.4-5.0); BILIRUBIN DIRECT 0.1 mg/dl (0.0-0.2); BILIRUBIN INDIRECT 0.1; BILIRUBIN TOTAL 0.2 mg/dL (0.2-1.0); PROTEIN TOTAL,TP 6.8 g/dl (6.4-8.2)
[2023-12-27] MEDS: valACYclovir 500 MG Tab PO ONE (19:08)
[2023-12-27 20:19] VITALS: BP 118/63; PULSE 61
[2023-12-28 09:41] LABS: BORDETELLA PARAPERT IS1001 Not Detected (Not Detected)
== END 2023-12-27 20:00 | disposition home or self-care (01) ==
LOC: JD.ED 16:25
DX: K12.1 Other forms of stomatitis (principal); B00.1 Herpesviral vesicular dermatitis; Z91.040 Latex allergy status; Z88.5 Allergy status to narcotic agent; Z88.6 Allergy status to analgesic agent; Z88.8 Allergy status to other drugs, medicaments and biological substances; Z79.51 Long term (current) use of inhaled steroids; Z79.899 Other long term (current) drug therapy; Z86.16 Personal history of COVID-19; Z90.49 Acquired absence of other specified parts of digestive tract; Z90.710 Acquired absence of both cervix and uterus
CPT/HCPCS: 36415; 80048; 80076; 83735; 85025; 87486; 87581; 87633; 99283; A9270-GY

== ENCOUNTER 2024-06-05 09:40 | Emergency (ER) | payer MEDICARE, MEDICAID ==
[2024-06-05 12:37] VITALS: BP 135/73; PULSE 74
== END 2024-06-05 12:25 | disposition home or self-care (01) ==
LOC: JD.ED 09:40
DX: R05.9 Cough, unspecified (principal); I10 Essential (primary) hypertension; E66.9 Obesity, unspecified; F17.210 Nicotine dependence, cigarettes, uncomplicated; Z91.040 Latex allergy status; Z86.16 Personal history of COVID-19; Z88.5 Allergy status to narcotic agent; Z88.2 Allergy status to sulfonamides; Z90.49 Acquired absence of other specified parts of digestive tract; Z79.899 Other long term (current) drug therapy; Z79.2 Long term (current) use of antibiotics; Z79.51 Long term (current) use of inhaled steroids; Z88.6 Allergy status to analgesic agent; Z88.0 Allergy status to penicillin; Z88.8 Allergy status to other drugs, medicaments and biological substances; Z68.35 Body mass index [BMI] 35.0-35.9, adult
CPT/HCPCS: 71045; 71045-26; 87428-QW; 99283

== ENCOUNTER 2024-10-23 11:12 | Emergency (ER) | payer MEDICARE, MEDICAID ==
[2024-10-23] MEDS: Ketorolac 60 MG/2 ML SDV IM ONE (13:24)
[2024-10-23 14:39] VITALS: BP 138/78; PULSE 65
== END 2024-10-23 13:45 | disposition home or self-care (01) ==
LOC: JD.ED 11:12
DX: S50.01XA Contusion of right elbow, initial encounter (principal); S00.83XA Contusion of other part of head, initial encounter; I10 Essential (primary) hypertension; J45.909 Unspecified asthma, uncomplicated; Z86.16 Personal history of COVID-19; Z90.49 Acquired absence of other specified parts of digestive tract; Z91.040 Latex allergy status; Z88.1 Allergy status to other antibiotic agents; Z88.2 Allergy status to sulfonamides; Z88.8 Allergy status to other drugs, medicaments and biological substances; Z88.5 Allergy status to narcotic agent; Z79.899 Other long term (current) drug therapy; Z79.51 Long term (current) use of inhaled steroids; Y04.0XXA Assault by unarmed brawl or fight, initial encounter; Y93.89 Activity, other specified
CPT/HCPCS: 70450; 70486; 73080; 96372; 99284; J1885